=== PATIENT | female | born 1985 | race Caucasian/White ===

== ENCOUNTER → 2018-08-11 12:31 | Outpatient (CLI) | payer SELFPAY ==
[2018-07-14 08:06] VITALS: BMI 33.0
[2018-07-25 09:41] VITALS: BMI 33.0
--- NOTE | 2018-08-11 12:36 | US_ITS ---
STUDY: SECOND AND THIRD TRIMESTER OBSTETRICAL ULTRASOUND REASON FOR EXAM: Female, 33 years old. , assessment LMP: February 09, 2018 TECHNIQUE: Transabdominal imaging of the pelvis was performed using real-time ultrasound. PRIOR ULTRASOUND: None. FINDINGS: There is a single intrauterine fetus. The fetus is in a variable presentation. There is demonstrated cardiac activity with a heart rate of 156 bpm. There is a normal amniotic fluid volume. The largest amniotic fluid pocket measures 4.5 cm. The amniotic fluid index (ROBERT) is 14.4 cm. The placenta is posterior in location and is not low lying. There are Grade 0 placental changes. The cervix measures 4.6 cm in length. The bilateral adnexal regions show no significant abnormalities. The low anterior uterine wall is thin on the left side. BIOMETRY: BPD: 6.76 cm: 27 weeks, 2 days HC: 25.26 cm: 27 weeks, 4 days AC: 21.46 cm: 26 weeks, 0 days FL: 4.86 cm: 26 weeks, 3 days CI: 78% FL/BPD: 72% FL/HC: FL/AC: 23% HC/AC: 1.18 age by current US: 26 weeks, 6 days. LINDA by current US: November 11, 2018. Estimated weight: 918 grams, +/- 134 grams, 45 %. age by prior US: weeks, days. LINDA by prior US: . Age by LMP: 26 weeks, 1 days. LINDA by LMP: November 16, 2018. ANATOMY: Gender: Male Cranium: Normal lateral ventricles. Normal choroid plexus. Normal cerebellum. Normal cisterna magna. Normal face, nose and lips. Chest: Normal 4-chamber heart. Abdomen/Pelvis: Normal diaphragm. Normal stomach. Normal abdominal wall. Normal cord insertion. Normal 3 vessel cord. Normal kidneys. Normal bladder. Spine: Normal cervical spine. Normal thoracic spine. Normal lumbar spine. Extremities: Normal bilateral upper extremities. Normal bilateral lower extremities. US/OB Anatomy Scan IMPRESSION: There is a viable intrauterine with estimated gestational age of 26 weeks 6 days by the current ultrasound. Measurements are given above. No significant anatomic abnormalities are seen. The low anterior uterine wall is thin, left greater than right. This is likely related to prior section with scarring. Electronically Signed: Ankita Montiel MD at 15:32 EST Tel Direct: [phone], Service support ,
== END ==
PROVIDERS: Referring Provider Obstetrics & Gynecology; Visit Provider Obstetrics & Gynecology
DX: Z36.89 Encounter for other specified antenatal screening (principal)
CPT/HCPCS: 76805

== ENCOUNTER → 2018-09-04 12:36 | Outpatient (CLI) | payer SELFPAY ==
[2018-09-04 12:02] VITALS: BMI 33.0
[2018-09-04 13:26] LABS: Absolute Lymphocyte Count 1.69 X10^3/ul (0.83-4.51); Absolute Neutrophil Count 6.3 X10^3/uL (2.0-7.7); Basophil# 0.02 X10^3/uL; Basophil% 0.2 % (0-1); Eosinophil# 0.35 X10^3/uL; Eosinophils% 3.9 % (0-5); Hematocrit 33.7 % (37-47); Hemoglobin 11.4 g/dl (12.0-15.0); Lymphocyte # 1.69 X10^3/ul (4.0); Lymphocyte % 18.7 % (19-41); Mean Corp Hgb Conc 33.8 g/gl (32-36); Mean Corpuscular Hgb 30.8 pg (27.0-32.0); Mean Corpuscular Volume 91.1 fL (81-99); Mean Platelet Vol. 10.2 fl (6.2-12.0); Monocyte# 0.66 X10^3/uL; Monocyte% 7.3 % (0-10); Neutrophil # 6.28 X10^3/uL (2.7-7.7); Neutrophil % 69.6 % (47-70); Platelet Count 192 K/mm3 (150-450); RBC Distribution Width CV 14.1 % (11.6-14.6); RBC Distribution Width SD 45.9 fl (35.1-43.9)
[2018-09-04 13:27] LABS: POSITIVE COUNT NO; POSITIVE DIFFERENTIAL NO; POSITIVE MORPHOLOGY NO
[2018-09-04 13:29] LABS: Glucose Challenge Gest 1H 50g 170 mg/dL (70-140)
--- OUTSIDE RECORDS SUMMARY | 2018-11-06 23:31 | XMS RPT_ITS ---
:1985 Author Organization OHIP Care Team Providers Name Role Phone Deena Reese Attending Unavailable Deena Reese Referring Unavailable Primay Care Physicia, No Primary Care Unavailable Deena Reese Attending Unavailable Primay Care Physicia, No Referring Unavailable SonanthDeena cortez Attending Unavailable Primay Care Physicia, No Referring Unavailable Deena Reese Attending Unavailable Primay Care Physicia, No Referring Unavailable SonanthDeena cortez Attending Unavailable Primay Care Physicia, No Primary Care Unavailable PROBLEMS PROBLEMS DATE TYPE CONDITION / CODE ATTENDING STATUS SOURCE 09/04/2018 Unknown Z34.90 - Hugh, Active [place] Encounter for [facility] normal , Repository unspecified, unspecified trimester / Z34.90(ICD-10) 08/11/2018 Unknown O34.219 - Hugh, Active [place] Maternal care for [facility] unspecified type Hospital scar from Repository previous delivery / O34.219(ICD-10) 08/11/2018 Unknown Z3A.26 - 26 weeks Hugh, Active [place] gestation of 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 [place] [address] OFFICE VISIT Date of Service: 09/04/18 MR#: [id number] Acct: [id number] Name: CORA CEBALLOS Rep #: [id number] : 1985 Provider: Deena Reese MD Age/Sex: 33/F Location: [facility] Status: Signed Intake Vital Signs09/04/18 Body Mass Index (BMI) 33.0 Intake Visit Reasons: 14 WK OB *r/s from 09/12 as pt going out of state Chief Complaint: est ob Capsule Maker Required: No Is patient in pain?: No Allergies No Known Allergies Allergy (Verified 09/04/18 12:01) Medications Vits [Prenatabs FA] 1 tab PO DAILY 06/09/16 [History Confirmed 09/04/18] Last Menstral Period: 02/09/18 Zika: Zika virus screening: Negative : No PFSH PFSH Medical History History of thyroid disease (Acute) Surgical History History of delivery (Acute) Family History Unknown Cancer Social History Smoking Status: Never smoker alcohol intake: never substance use type: does not use caffeine: Yes what type of physical activity do you participate in: walking seatbelt use: always do you feel safe at home: Yes additional social history: Jolly Shannon Patient works out of the home Pregancy History 3 Elective abortions Hx Para 1 Spontaneous abortions Past Pregnancies Del. DatName GA/WeeksOutcome Route Bt [facility] LocaProviderFOB e ht en tn Unknown 2016 [place] live birC-sectio Female [facility] Jaime l term ell HPI 14 WK OB *r/s from 09/12 as pt going [place] of state: Details: CORA CEBALLOS is a 33 year old who presents for routine OB visit. OB Visit LINDA Calculator Estimated Delivery Date 11/16/18 Based on LMP (certain) 02/09/18 Current WG 29w 4d Number 1 Expected Delivery Route/Plan desired- risks discussed and uptodate education given. 63 % likelihood of success. plan cocare with Jeannette wiley lay midwfie and harjinder. recommend repeat US measuring the lower uterine segment due to previous thinning seen on one ultrasound. Initial Weight: Not Recorded Date Weight BP Urine PrFHR FuHt Pres MoCTX DilationFetal StVisit NoProviderComments E ot v te GA G Effac lucose ed Visit Notes Visit Date: 09/04/18 no vb lof good fm no regular ctx. co back pain and discussed wanting ultrasound to evaluate the lower uterine segment. she is getting cbc gct and all the bloodwork today Deena Reese MD on 09/04/18 Visit Date: 08/11/18 No visit notes to display Visit Date: 07/14/18 extensive counseling regarding the risks and benefits of . will approve . no vb cramping. Deena Reese MD on 07/14/18 Diagnostics Diagnostics Labs Blood Type A POSITIVE 06/09/16 Antibody Screen NEGATIVE 06/09/16 Hct Pending 09/04/18 Hgb Pending 09/04/18 Obstetrics Ultrasound 08/11/18 Rubella IgG Antibody < 0.2 IU/mL 06/09/16 RPR NONREACTIVE (NONREACTIVE) 06/09/16 Hep Bs Antigen Negative (Negative) 06/09/16 Group B Strep DNA Negative (Negative) 06/09/16 Rhogam given: No 06/12/16 Glucose 1 Hr 50 gm Pending 09/04/18 Details: HIV: Urine Culture: Sequential Screen: NIPT Screen: Assessment AND Plan Problems 1. Previous delivery affecting O34.219 counseled regarding risks and patient desires TOLAC. 63% likelihood of success. 2. 29 weeks gestation of Z3A.29 genetic, carrier, and ntd screening declined. Anatomy Scan at [facility]-uterine wall thin, recommended repeat US attention to lower uterine segment with MFM in 4-6 weeks. 3. 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 ACOG trimester education reviewed and updated. see problem list details for updated plan management information and see below for orders placed at this visit. GA appropriate handout given. Orders Orders: Coding Level of Care Code OB Routine Diagnoses Previous delivery affecting O34.219 29 weeks gestation of Z3A.29 Weeks of gestation: 29 weeks Encounter for supervision of other normal in third trimester Z34.83 Normal : other normal Trimester: third trimester 09/04/18 1326 <Electronically signed by Deena Reese MD> Date Deena Reese MD Cosigner Signature: Date (if applicable) CC: CBC W/DIFF, AUTOMATED Collected: 09/04/2018 Status: F Source: BRANDY 12:52 PM [facility] REPOSITORY TYPE CODE TESTS RESULT OUT OF RANGE REFERENCE UNITS LAB L100.1000 4.4-11.0 K/mm3 Normal WBC 9.0 LAB L100.1200 4.2-5.4 M/mm3 Low RBC 3.70 LAB L100.1300 12.0-15.0 g/dl Low HGB 11.4 LAB L100.1400 37-47 % Low HCT 33.7 LAB L100.1500 81-99 fL Normal MCV 91.1 LAB L100.1600 27.0-32.0 pg Normal MCH 30.8 LAB L100.1700 32-36 g/gl Normal MCHC 33.8 LAB L100.1810 11.6-14.6 % Normal RDW CV 14.1 LAB L100.1820 35.1-43.9 fl High RDW SD 45.9 LAB L100.1900 150-450 K/mm3 Normal PLT 192 LAB L100.2000 6.2-12.0 fl Normal MPV 10.2 LAB L100.2100 47-70 % Normal NEUT% 69.6 LAB L100.2200 19-41 % Low LY% 18.7 LAB L100.2300 0-10 % Normal MONO% 7.3 LAB L100.2400 0-5 % Normal EO% 3.9 LAB L100.2500 0-1 % Normal BASO% 0.2 LAB L100.2550 0.0-0.9 % Normal IM GRAN % 0.300 Result Comment: IG% - Immature Granulocytes (promyelocytes, myelocytes and metamyelocytes) > 1% indicates that a LEFT SHIFT is Present. LAB L100.2620 2.0-7.7 X10 3/uL Normal Absolute Neut 6.3 LAB L100.2720 0.83-4.51 X10 3/ul Normal Absolute Lymph 1.69 Performed By: #### L100.0100 #### [facility] [address] [place], [address] GLUCOSE CHALLENGE GEST Collected: 09/04/2018 Status: F Source: RBANDY 1H 50G 12:52 PM [facility] REPOSITORY TYPE CODE TESTS RESULT OUT OF RANGE REFERENCE UNITS LAB L501.0250 70-140 mg/dL High GLU GEST 170 50g 1H Performed By: #### L501.0250 #### [facility] [address] 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 [place] [address] OFFICE VISIT Date of Service: 08/11/18 MR#: [id number] Acct: [id number] Name: CORA CEBALLOS Rep #: [id number] : 1985 Provider: Deena Reese MD Age/Sex: 33/F Location: [facility] Status: Signed Intake Vital Signs08/11/18 Weight: 177 lb 8 oz 08/11/18 Blood Pressure 112/72 Intake Visit Reasons: OB/AND FOLLOW UP ANATOMY SCAN Chief Complaint: Est OB Accompanied by: spouse Is patient in pain?: No Allergies No Known Allergies Allergy (Verified 08/11/18 13:47) Medications Vits [Prenatabs FA] 1 tab PO DAILY 06/09/16 [History Confirmed 08/11/18] Last Menstral Period: 02/09/18 Zika: Zika virus screening: Negative : No PFSH PFSH Medical History History of thyroid disease (Acute) Surgical History History of delivery (Acute) Family History Unknown Cancer Social History Smoking Status: Never smoker alcohol intake: never substance use type: does not use caffeine: Yes what type of physical activity do you participate in: walking seatbelt use: always do you feel safe at home: Yes additional social history: Monae Ortega Patient works out of the home Pregancy History 3 Elective abortions Hx Para 1 Spontaneous abortions Past Pregnancies Del. DatName GA/WeeksOutcome Route [facility] HospitalgInB[facility] LgAnesthesDel LocaProviderFOB e ht en ia tn Unknown 2015 [place] live birC-sectio Female Dr[facility] Jaime l term ell HPI OB/AND FOLLOW UP ANATOMY SCAN: Details: CORA CEBALLOS is a 33 year old who presents for routine OB visit. OB Visit LINDA Calculator Estimated Delivery Date 11/16/18 Based on LMP (certain) 02/09/18 Current WG 26w 1d Number 1 Expected Delivery Route/Plan desired- risks discussed and uptodate education given. 63 % likelihood of success. plan cocare with Jeannette wiley lay midwfie and harjinder. Initial Weight: Not Recorded Date Weight BP Urine PrFHR FuHt Pres MoCTX DilationFetal StVisit NoProviderComments E ot v te GA G Effac lucose ed Visit Notes Visit Date: 08/11/18 No visit notes to display Visit Date: 07/14/18 extensive counseling regarding the risks and benefits of . will approve . no vb cramping. Deena Reese MD on 07/14/18 Diagnostics Diagnostics Labs Blood Type A POSITIVE 06/09/16 Antibody Screen NEGATIVE 06/09/16 Hct 28.7 % (37-47) L 06/10/16 Hgb 9.5 g/dl (12.0-15.0) L 06/10/16 Obstetrics Ultrasound 08/11/18 Rubella IgG Antibody < 0.2 IU/mL 06/09/16 RPR NONREACTIVE (NONREACTIVE) 06/09/16 Hep Bs Antigen Negative (Negative) 06/09/16 Group B Strep DNA Negative (Negative) 06/09/16 Rhogam given: No 06/12/16 Details: HIV: Urine Culture: Sequential Screen: NIPT Screen: Assessment AND Plan Problems 1. Previous delivery affecting O34.219 counseled regarding risks and patient desires TOLAC. 63% likelihood of success. 2. 26 weeks gestation of Z3A.26 genetic, carrier, and ntd screening declined. anatomy scan with mfm ordered. 3. Encounter for supervision of other normal in second trimester Z34.82 LINDA 11/16/18 girl PC- Jolly delgado with binder layer Jeannette Maria ACOG trimester education reviewed and updated. see problem list details for updated plan management information and see below for orders placed at this visit. GA appropriate handout given. discussed doing blood work and glucose screening next week. Orders Orders: Coding Level of Care Code OB Routine Diagnoses Previous delivery affecting O34.219 26 weeks gestation of Z3A.26 Weeks of gestation: 26 weeks Encounter for supervision of other normal in second trimester Z34.82 Normal : other normal Trimester: second trimester 08/11/18 1408 <Electronically signed by Deena Reese MD> Date Deena Reese MD Cosigner Signature: Date (if applicable) CC: OB ANATOMY SCAN Observed: 08/11/2018 Status: F Source: BRANDY 12:36 PM [facility] REPOSITORY [facility] Imaging Services [address] [place] [address] OB Anatomy Scan MR#: [id number] Acct: [id number] Name: CORA CEBALLOS Rep #: [id number] : 1985 F 33 From: Ankita Montiel MD PCP: Care Physician, No Primary Status: REG CLI Study: OB Anatomy Scan Date of Exam: 08/11/18 Exam# [id number] Ordering Dr: Deena Reese MD STUDY: SECOND AND THIRD TRIMESTER OBSTETRICAL ULTRASOUND REASON FOR EXAM: Female, 33 years old. , assessment LMP: February 09, 2018 TECHNIQUE: Transabdominal imaging of the pelvis was performed using real-time ultrasound. PRIOR ULTRASOUND: None. FINDINGS: There is a single intrauterine fetus. The fetus is in a variable presentation. There is demonstrated cardiac activity with a heart rate of 156 bpm. There is a normal amniotic fluid volume. The largest amniotic fluid pocket measures 4.5 cm. The amniotic fluid index (ROBERT) is 14.4 cm. The placenta is posterior in location and is not low lying. There are Grade 0 placental changes. The cervix measures 4.6 cm in length. The bilateral adnexal regions show no significant abnormalities. The low anterior uterine wall is thin on the left side. BIOMETRY: BPD: 6.76 cm: 27 weeks, 2 days HC: 25.26 cm: 27 weeks, 4 days AC: 21.46 cm: 26 weeks, 0 days FL: 4.86 cm: 26 weeks, 3 days CI: 78% FL/BPD: 72% FL/HC: FL/AC: 23% HC/AC: 1.18 age by current US: 26 weeks, 6 days. LINDA by current US: November 11, 2018. Estimated weight: 918 grams, +/- 134 grams, 45 %. age by prior US: weeks, days. LINDA by prior US: . Age by LMP: 26 weeks, 1 days. LINDA by LMP: November 16, 2018. ANATOMY: Gender: Male Cranium: Normal lateral ventricles. Normal choroid plexus. Normal cerebellum. Normal cisterna magna. Normal face, nose and lips. Chest: Normal 4-chamber heart. Abdomen/Pelvis: Normal diaphragm. Normal stomach. Normal abdominal wall. Normal cord insertion. Normal 3 vessel cord. Normal kidneys. Normal bladder. Spine: Normal cervical spine. Normal thoracic spine. Normal lumbar spine. Extremities: Normal bilateral upper extremities. Normal bilateral lower extremities. US/OB Anatomy Scan IMPRESSION: There is a viable intrauterine with estimated gestational age of 26 weeks 6 days by the current ultrasound. Measurements are given above. No significant anatomic abnormalities are seen. The low anterior uterine wall is thin, left greater than right. This is likely related to prior section with scarring. 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 Is patient in pain?: No Allergies No Known Allergies Allergy (Verified 07/14/18 08:06) Medications Vits [Prenatabs FA] 1 tab PO DAILY 06/09/16 [History Confirmed 07/14/18] Last Menstral Period: 02/09/18 Zika: Zika virus screening: Negative : No PFSH PFSH Medical History History of thyroid disease (Acute) Surgical History History of delivery (Acute) Family History Unknown Cancer Social History Smoking Status: Never smoker alcohol intake: never substance use type: does not use caffeine: Yes what type of physical activity do you participate in: walking seatbelt use: always do you feel safe at home: Yes additional social history: Monae Ortega Patient works out of the home Pregancy History 3 Elective abortions Hx Para 1 Spontaneous abortions Past Pregnancies Del. DatName GA/WeeksOutcome Route Bt WeigInfant GLabor LgAnesthesDel LocaProviderFOB e ht en th ia tn Unknown 2016 [place] live birC-sectio Female Dr[facility] Jaime l term ell HPI consult 20 weeks: Details: CORA CEBALLOS is a 33 year old who presents for routine OB visit. she is considering transfer of care. she is about 20 weeks with her second . she had a previous for 9 cm arrest of dilation and possible cpd versus arrest of . she is wanting to OB Visit LINDA Calculator Estimated Delivery Date 11/16/18 Based on LMP (certain) 02/09/18 Current WG 22w 1d Number 1 Expected Delivery Route/Plan desired- risks discussed and uptodate education given. 63 % likelihood of success. plan cocare with Jeannette wiley lay midwfie and harjinder. Initial Weight: Not Recorded Date Weight BP Urine PrFHR FuHt Pres MoCTX DilationFetal StVisit NoProviderComments E ot v te GA G Effac lucose ed Visit Notes Visit Date: 07/14/18 extensive counseling regarding the risks and benefits of . will approve . no vb cramping. Deena Reese MD on 07/14/18 Diagnostics Diagnostics Labs Blood Type A POSITIVE 06/09/16 Antibody Screen NEGATIVE 06/09/16 Hct 28.7 % (37-47) L 06/10/16 Hgb 9.5 g/dl (12.0-15.0) L 06/10/16 Rubella IgG Antibody < 0.2 IU/mL 06/09/16 RPR NONREACTIVE (NONREACTIVE) 06/09/16 Hep Bs Antigen Negative (Negative) 06/09/16 Group B Strep DNA Negative (Negative) 06/09/16 Rhogam given: No 06/12/16 Details: HIV: Urine Culture: Sequential Screen: NIPT Screen: ROS Const Denies fever(s) GI Denies abdominal pain, Reports as per HPI Denies vaginal discharge, Denies abnormal vaginal bleeding, Reports as per HPI Exam Const General: healthy appearing, comfortable, no acute distress GI Inspection: normal to inspection Palpation: soft, nontender Results [id number] Office Urine Glucose Negative Last Edit by Heydi Potter on 07/14/18 08:18 Office Urine Protein Negative Last Edit by Heydi Potter on 07/14/18 08:18 Assessment AND Plan Problems 1. Encounter for supervision of other normal in second trimester Z34.82 LINDA 11/16/18 girl PC- Jolly delgado with binder layer Jeannette 2. 20 weeks gestation of Z3A.20 genetic, carrier, and ntd screening declined. anatomy scan with mfm ordered. 3. Previous delivery affecting O34.219 counseled regarding risks and patient desires TOLAC. 63% likelihood of success. Plan ACOG trimester education reviewed and updated. see problem list details for updated plan management information and see below for orders placed at this visit. GA appropriate handout given. Orders Orders: Coding Level of Care Code OB Routine Diagnoses Encounter for supervision of other normal in second trimester Z34.82 Normal : other normal Trimester: second trimester 20 weeks gestation of Z3A.20 Weeks of gestation: 20 weeks Previous delivery affecting O34.219 07/14/18 1121 <Electronically signed by Deena Reese MD> Date Deena Reese MD Cosigner Signature: Date (if applicable) CC: ALLERGIES ALLERGIES DATE TYPE / CODE NAME / CODE REACTION SEVERITY SOURCE 09/04/2018 Drug No Known Unknown [facility] Allergy/4160 Allergies/F00 Hospital 02350(SNOMED [id number](RXNOR Repository CT) M) ENCOUNTERS ENCOUNTERS ADMIT/DISCHARGE ACCOUNT ADMITTING ENCOUNTER LOCATION SOURCE NUMBER CLASS 09/04/2018 [id number] Amb[place] [facility] ing:PAVLAB Repository 09/04/2018/ [id number] Ambulatory BMSBuilding:B [place] [facility] 5 [facility] Repository 08/11/2018/ [id number] Ambulatory BMSBuilding:B [place] [facility] 3 [facility] Repository 08/11/2018 [id number] Ambulatory [place] [address] [place] [address] ing:OPUS Repository 07/14/2018/ [id number] Ambulatory BMSBuilding:B [place] 8 6 [facility] Repository PAYERS PAYERS ENCOUNTER GUARANTOR PAYER SUBSCRIBER SOURCE 09/04/2018 CORA [id number] Primary NOT GIVENUNK [place] [employer] Insurance:SELF PAY [facility] [id number]: ([phone]) Number: Effective Repository [phone] () Date:2018-09-04 09/04/2018 CORA Perry [id number] Primary NOT GIVENUNK [place] [employer] [place] Insurance:SELF PAY [facility] [id number]: (780) Number: Effective Repository [phone] () Date:2018-09-04 08/11/2018 CORA Perry [id number] Primary NOT GIVENUNK [place] [employer] Insurance:SELF PAY [facility] [id number]: [phone]) Number: Effective Repository [phone] () Date:2018-08-11 08/11/2018 CORA Perry [id number] Primary Insurance:[facility] CORA Perry MASTDOB: [place] [employer] PACKAGE PLAN[id number] Number[place] Hospital [id number]: [phone] Repository [phone] () Date:2018-07-25 08/11/2018 Secondary NOT GIVENUNK [place] Insurance:SELF PAY [facility] [place] Number: Effective Repository Date:2018-07-25 07/14/2018 CORA Perry [id number] Primary Insurance:[facility] CORA Perry NATEB: [place] [employer] PACKAGE PLANPolicy [id number] Number: [facility] [id number]: [phone] Repository [phone] () Date:2018-06-14 07/14/2018 Secondary NOT GIVENUNK [place] Insurance:SELF PAY [facility] [place] Number: Effective Repository Date:2018-07-14
== END ==
PROVIDERS: Visit Provider Obstetrics & Gynecology
DX: Z34.90 Encounter for supervision of normal pregnancy, unspecified, unspecified trimester (principal)
CPT/HCPCS: 36415; 82950; 85025

== ENCOUNTER → 2018-10-24 16:52 | Outpatient (CLI) | payer OTHER, SELFPAY ==
[2018-10-24 08:17] VITALS: BMI 33.0
== END ==
PROVIDERS: Referring Provider Obstetrics & Gynecology; Visit Provider Obstetrics & Gynecology
DX: Z34.90 Encounter for supervision of normal pregnancy, unspecified, unspecified trimester (principal)
CPT/HCPCS: 87081

== ENCOUNTER → 2018-11-20 | Outpatient (CLI) | payer SELFPAY ==
[2018-11-13 08:39] VITALS: BMI 35.2
--- NOTE | 2018-11-20 11:17 | US_ITS ---
STUDY: SECOND AND THIRD TRIMESTER OBSTETRICAL ULTRASOUND - LIMITED REASON FOR EXAM: Female, 33 years old. Routine survey. LMP: February 09, 2018 PRIOR ULTRASOUND: Comparison is made with prior study dated August 11, 2018. TECHNIQUE: Transabdominal TECHNICAL QUALITY: Adequate. FINDINGS: There is a single intrauterine fetus. The fetus is in a cephalic presentation. There is demonstrated cardiac activity with a heart rate of 128 bpm. There is a normal amniotic fluid volume. The largest amniotic fluid pocket measures 3.1 cm x 2.7 cm. The amniotic fluid index (ROBERT) is 13.0 cm. The placenta is posterior in location and is not low lying. There are Grade 3 placental changes. The lower uterine segment is not visualized due to the position. BIOMETRY: BPD: 9.7 cm: 39 weeks, 5 days HC: 34.6 cm: 40 weeks, 1 days AC: 36.5 cm: 40 weeks, 3 days FL: 7.9 cm: 40 weeks, 1 days Age by LMP: 40 weeks, 4 days. LINDA by LMP: November 16, 2018. age by prior US: 41 weeks, 3 days. LINDA by prior US: November 11, 2018. age by current US: 40 weeks, 1 days. LINDA by current US: November 19, 2018. Estimated weight: 4021 grams, +/- 587 grams Gender: Indeterminant US/OB Limited With Biometrics IMPRESSION: Single live intrauterine gestation with a mean gestational age of 41 weeks and 3 days. The measurements obtained today fall within the normal expected range. Electronically Signed: Hank Quinonez, at 13:21 EDT , Service support ,
== END | disposition home or self-care (01) ==
PROVIDERS: Referring Provider Obstetrics & Gynecology; Visit Provider Obstetrics & Gynecology
DX: O48.0 Post-term pregnancy (principal); Z3A.00 Weeks of gestation of pregnancy not specified
CPT/HCPCS: 76816

== ENCOUNTER 2018-11-24 09:45 | Inpatient (IN) | payer SELFPAY ==
[2018-11-20 12:44] VITALS: BMI 35.2
[2018-11-24] VITALS (19 sets, daily range): BP systolic 90–113; BP diastolic 43–72; PULSE 52–94; RESP 14–18; TEMP 36.1–36.8; O2SAT 96–100; BMI 35.3
[2018-11-24] MEDS: Lactated Ringers 1,000 ML 999 ML IV (10:05)
[2018-11-24 10:56] LABS: Hemoglobin 12.3 g/dl (12.0-15.0); Mean Corp Hgb Conc 33.2 g/gl (32-36); Mean Corpuscular Hgb 29.3 pg (27.0-32.0); Mean Corpuscular Volume 88.1 fL (81-99); Mean Platelet Vol. 10.8 fl (6.2-12.0); Platelet Count 191 K/mm3 (150-450); RBC Distribution Width CV 14.5 % (11.6-14.6); RBC Distribution Width SD 46.9 fl (35.1-43.9); White Blood Count 8.4 K/mm3 (4.4-11.0)
[2018-11-24 10:57] LABS: Scan Indicated on CBC? Y/N NO
[2018-11-24] MEDS: Lactated Ringers 1,000 ML 150 ML IV (11:02)
[2018-11-24 11:20] LABS: Bedside Glucose 82 mg/dL (70-110)
--- NOTE | 2018-11-24 11:47 | PCM.HP.OB ---
- Problem List (1) Gestational diabetes Status: Acute Qualifiers: Comment: counseling provided about glucose management. if fasting sugars are still over 95 recommend starting 2.5mg glyburide at night. needs growth US next week and if starting medication needs weekly nsts until delivery at 39-40 weeks (2) Rubella non-immune status, antepartum Status: Acute Comment: MMR (3) Previous delivery affecting Status: Acute Comment: counseled regarding risks and patient desires TOLAC. 63% likelihood of success. (4) Status: Acute Qualifiers: Comment: genetic, carrier, and ntd screening declined. Anatomy Scan at [facility]-uterine wall thin, recommended repeat US attention to lower uterine segment with MFM in 4-6 weeks. 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 she denies any abnormal bleeding. she was desiring a but didn't go into labor and her cervix isn't favorable. Medical History: Medical History (Last Reviewed 11/20/18 @ 12:44 by Zakia Roche) History of thyroid disease Z86.39 no medication, taking natural supplement Surgical History: Surgical History (Last Reviewed 11/20/18 @ 12:44 by Zakia Roche) History of delivery Z98.891 Allergies No Known Allergies Allergy (Verified 11/20/18 12:44) Home Medications: Home Medications Vits [Prenatabs FA] 1 tab PO DAILY 06/09/16 blood sugar diagnostic strips See Dose Instructions .ROUTE .MEDSUPPLY #100 ea 11/13/18 Smoking Status: Never smoker Alcohol: None Number of Fetus(es): 1 Heart Tracin History Past Pregnancies: Past Pregnancies preivuos cs for breech Labs: Mom's Labs & Results 11/24/18 11/24/18 11/24/18 10:05 10:05 11:10 WBC 8.4 RBC 4.20 Hgb 12.3 Hct 37.0 MCV 88.1 MCH 29.3 MCHC 33.2 RDW 14.5 RDW Differential 46.9 H Plt Count 191 MPV 10.8 POC Glucose 82 Blood Type A POSITIVE Antibody Screen NEGATIVE Course Did the patient receive Yes care? Labs Blood Type: A RH: POSITIVE RPR/VDRL/Syphilis Nonreactive Rubella status Non-immune HbSAg Negative Chlamydia Negative Gonorrhea Negative HIV/AIDS Non-Reactive Group B Strep: Negative Current Obstetrical History Gestational Diabetes Yes: diet controlled Infertility No IUGR No Macrosomia No Hypertension/Pre-eclampsia No Placenta Previa/Abruption No PTL/PROM No Uterine anomaly No Oligohydramnios No Polyhydramnios No Multiple gestation No Past Medical History Asthma No Diabetes No Hypertension No Heart disease No Mitral valve prolapse No Neurologic/Seizure disorder/ No Migraines Kidney disease No Liver disease No Varicosities No Clotting disorders/Hx of DVT No Thyroid Dysfunction No Other medical diseases No Psychiatric disorders No Major trauma No Abnormal PAP smear No Sleep apnea No Mammogram in the last 2 years No Social History Marital Status: Alleged father cristian Hx Smoking No Smoking Status Never smoker Expected Infant Delivery Method: Repeat Section Review of Systems Constitutional: Denies: Fever, Malaise Eyes: Denies: Blurred vision, Vision Change HEENT: Denies: Head Aches, Visual Changes Cardiovascular: Denies: Chest Pain, Palpitations Respiratory: Denies: Cough, Shortness of Breath, Wheezing Gastrointestinal: Denies: Abdominal Pain, Diarrhea, Nausea, Vomiting Genitourinary: Denies: Dysuria, Hematuria Musculoskeletal: Denies: Joint Pain, Muscle pain Skin: Denies: Lesions, Rash Neurological: Denies: Blurred vision, Focal weakness, Headaches Psychiatric: Denies: Anxiety, Depression Endocrine: Denies: Heat/ Cold Intolerance Hematologic/ Lymphatic: Denies: Easy Bruising, Easy Bleeding Physical Exam General: Alert, Cooperative, No apparent distress HEENT: Atraumatic, Normocephalic. Negative for: Thyromegaly, Lymphadenopathy Cardiovascular: Regular rate Lungs: Normal air movement Abdomen: Soft, Non Tender, Gravid Neurological: Deep Tendon Reflexes 2+/4 and Symmetrical, Neuro grossly intact. 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 Negative for: Vulvar lesions Estimated gestational size: Appropriate for gestational size Presentation: Cephalic Assessment/Plan All Active Problems (Last Reviewed 11/20/18 @ 12:44 by Zakia Roche) Gestational diabetes (Acute) Rubella non-immune status, antepartum (Acute) Previous delivery affecting (Acute) (Acute) Supervision of normal (Acute) This is a 33 year-old, at 41 weeks gestational age presents for RLTCS plan RLTCS due to unfavorable cervix, diabetes, and 41 weeks.
--- NOTE | 2018-11-24 11:50 | HP.PCM_ITS ---
- Problem List (1) Gestational diabetes Status: Acute Qualifiers: Comment: counseling provided about glucose management. if fasting sugars are still over 95 recommend starting 2.5mg glyburide at night. needs growth US next week and if starting medication needs weekly nsts until delivery at 39-40 weeks (2) Rubella non-immune status, antepartum Status: Acute Comment: MMR (3) Previous delivery affecting Status: Acute Comment: counseled regarding risks and patient desires TOLAC. 63% likelihood of success. (4) Status: Acute Qualifiers: Comment: genetic, carrier, and ntd screening declined. Anatomy Scan at [facility]- uterine wall thin, recommended repeat US attention to lower uterine segment with MFM in 4-6 weeks. 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 she denies any abnormal bleeding. she was desiring a but didn't go into labor and her cervix isn't favorable. Medical History: Medical History (Last Reviewed 11/20/18 @ 12:44 by Zakia Roche) History of thyroid disease Z86.39 no medication, taking natural supplement Surgical History: Surgical History (Last Reviewed 11/20/18 @ 12:44 by Zakia Roche) History of delivery Z98.891 Allergies No Known Allergies Allergy (Verified 11/20/18 12:44) Home Medications: Home Medications Vits [Prenatabs FA] 1 tab PO DAILY 06/09/16 blood sugar diagnostic strips See Dose Instructions .ROUTE .MEDSUPPLY #100 ea 11/13/18 Smoking Status: Never smoker Alcohol: None Number of Fetus(es): 1 Heart Tracin History Past Pregnancies: Past Pregnancies preivuos cs for breech Labs: Mom's Labs & Results 11/24/18 11/24/18 11/24/18 10:05 10:05 11:10 WBC 8.4 RBC 4.20 Hgb 12.3 Hct 37.0 MCV 88.1 MCH 29.3 MCHC 33.2 RDW 14.5 RDW Differential 46.9 H Plt Count 191 MPV 10.8 POC Glucose 82 Blood Type A POSITIVE Antibody Screen NEGATIVE Course Did the patient receive Yes care? Labs Blood Type: A RH: POSITIVE RPR/VDRL/Syphilis Nonreactive Rubella status Non-immune HbSAg Negative Chlamydia Negative Gonorrhea Negative HIV/AIDS Non-Reactive Group B Strep: Negative Current Obstetrical History Gestational Diabetes Yes: diet controlled Infertility No IUGR No Macrosomia No Hypertension/Pre-eclampsia No Placenta Previa/Abruption No PTL/PROM No Uterine anomaly No Oligohydramnios No Polyhydramnios No Multiple gestation No Past Medical History Asthma No Diabetes No Hypertension No Heart disease No Mitral valve prolapse No Neurologic/Seizure disorder/ No Migraines Kidney disease No Liver disease No Varicosities No Clotting disorders/Hx of DVT No Thyroid Dysfunction No Other medical diseases No Psychiatric disorders No Major trauma No Abnormal PAP smear No Sleep apnea No Mammogram in the last 2 years No Social History Marital Status: Alleged father cristian Hx Smoking No Smoking Status Never smoker Expected Infant Delivery Method: Repeat Section Review of Systems Constitutional: Denies: Fever, Malaise Eyes: Denies: Blurred vision, Vision Change HEENT: Denies: Head Aches, Visual Changes Cardiovascular: Denies: Chest Pain, Palpitations Respiratory: Denies: Cough, Shortness of Breath, Wheezing Gastrointestinal: Denies: Abdominal Pain, Diarrhea, Nausea, Vomiting Genitourinary: Denies: Dysuria, Hematuria Musculoskeletal: Denies: Joint Pain, Muscle pain Skin: Denies: Lesions, Rash Neurological: Denies: Blurred vision, Focal weakness, Headaches Psychiatric: Denies: Anxiety, Depression Endocrine: Denies: Heat/ Cold Intolerance Hematologic/ Lymphatic: Denies: Easy Bruising, Easy Bleeding Physical Exam General: Alert, Cooperative, No apparent distress HEENT: Atraumatic, Normocephalic. Negative for: Thyromegaly, Lymphadenopathy Cardiovascular: Regular rate Lungs: Normal air movement Abdomen: Soft, Non Tender, Gravid Neurological: Deep Tendon Reflexes 2+/4 and Symmetrical, Neuro grossly intact. 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 Negative for: Vulvar lesions Estimated gestational size: Appropriate for gestational size Presentation: Cephalic Assessment/Plan All Active Problems (Last Reviewed 11/20/18 @ 12:44 by Zakia Roche) Gestational diabetes (Acute) Rubella non-immune status, antepartum (Acute) Previous delivery affecting (Acute) (Acute) Supervision of normal (Acute) This is a 33 year-old, at 41 weeks gestational age presents for RLTCS plan RLTCS due to unfavorable cervix, diabetes, and 41 weeks.
[2018-11-24] MEDS: Sodium Citrate/Citric Acid 30 ML UDC PO (11:55)
--- NOTE | 2018-11-24 12:24 | OP.PCM_ITS ---
Problem List (1) Gestational diabetes Status: Acute Qualifiers: Comment: counseling provided about glucose management. if fasting sugars are still over 95 recommend starting 2.5mg glyburide at night. needs growth US next week and if starting medication needs weekly nsts until delivery at 39-40 weeks (2) Rubella non-immune status, antepartum Status: Acute Comment: MMR (3) Previous delivery affecting Status: Acute Comment: counseled regarding risks and patient desires TOLAC. 63% likelihood of success. (4) Status: Acute Qualifiers: Comment: genetic, carrier, and ntd screening declined. [facility] Scan at [facility]- uterine wall thin, recommended repeat US attention to lower uterine segment with MFM in 4-6 weeks. 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 Spinal anesthesia was placed without difficulty. Walden catheter was placed. The patient was placed in the dorsal supine position with leftward tilt. Patient was prepped and draped in the normal sterile fashion. Pfannenstiel skin incision was made with the scalpel and carried through to the underlying layer of fascia with the scalpel. Fascia was nicked in the midline and the incision extended laterally. The rectus bellies were dissected off superiorly and inferiorly with out complication both sharply and bluntly. The peritoneum was entered digitally. Upon examination there was a thinner than normal appearance to the lower uterine segment but the integrity appeared intact and within normal limits. There was some scar and retraction on the left side of the uterine incision but no gross defects were seen. Bladder flap was created and a low transverse uterine incision was made with the scalpel. The infant's head was delivered atraumatically followed by the anterior and posterior shoulders without complication the rest of the delivered. The cord was clamped and cut and the infant was handed off to awaiting nurse. The placenta was delivered spontaneously immediately following and was noted to be intact and have a three- vessel cord. The uterus was exteriorized cleared of all clots and debris, and the incision was closed in a double layer closure using #1 Monocryl. The uterus was returned to the maternal abdomen and gutters were cleared of all clots and debris. The ovaries and fallopian tubes were noted to be within normal limits. The peritoneum was closed with 3-0 Monocryl in a running fashion. Fascia was closed with 0 PDS in a running fashion. Subcutaneous tissue was copiously irrigated and the skin was closed with 3-0 Monocryl in a subcuticular fashion. Mepilex dressing were applied without complication. Patient was taken to recovery in stable condition. Amniotic Fluid Description: Clear Placenta Disposition: [facility] Drain: Walden to straight drain Fluids Replaced: crystalloid Cord Entanglement: None Cord Vessel Description: 3 Vessels Esitmated Blood Loss (ml): 800 Gender: Male Delayed cord clamping: Yes Pre-op Antibiotic Given: Ancef 2 grams IV x1 Pt instructed on risks of surgery: Bleeding, Anesthesia Risks, Infection, Injury to surrounding structure(s) including bowel and bladder Complications: None - Admit VTE Documentation VTE Present on Admission: No VTE Mechan Device Prophylaxis: SCD's
[2018-11-24] MEDS: Oxytocin 30 units/NS 500 ml 30 UNITS/500 ML IV.SOLN 167 UNITS IV (12:44)
--- NOTE | 2018-11-24 13:59 | NURSING ---
pt has red raised rash on abdomen states having during and Dr manjarrez.
[2018-11-24] MEDS: Metoclopramide 10 MG/2 ML Vial IV (14:46)
[2018-11-24] MEDS: Lactated Ringers 1,000 ML 100 ML IV ×2 (15:05→19:58)
[2018-11-24] MEDS: proCHLORPERazine 10 MG/2 ML Vial IV (15:51)
[2018-11-24] MEDS: Ketorolac 30 MG/ML Syringe IV (19:58)
[2018-11-25] VITALS (10 sets, daily range): BP systolic 84–95; BP diastolic 40–51; PULSE 67–78; RESP 16–18; TEMP 36.6–36.9; O2SAT 93–98
[2018-11-25] MEDS: Lactated Ringers 1,000 ML 100 ML IV (06:27)
[2018-11-25] MEDS: Ketorolac 30 MG/ML Syringe IV ×2 (06:31→12:17)
[2018-11-25] MEDS: 0.9% Saline Lock 10 ML Syringe IV ×2 (06:31→12:18)
[2018-11-25 06:55] LABS: Bedside Glucose 87 mg/dL (70-110)
[2018-11-25 06:55] LABS: Hematocrit 31.6 % (37-47); Hemoglobin 10.4 g/dl (12.0-15.0); Mean Corp Hgb Conc 32.9 g/gl (32-36); Mean Corpuscular Hgb 29.1 pg (27.0-32.0); Mean Corpuscular Volume 88.5 fL (81-99); Mean Platelet Vol. 10.8 fl (6.2-12.0); Platelet Count 163 K/mm3 (150-450); RBC Distribution Width CV 14.4 % (11.6-14.6); RBC Distribution Width SD 45.4 fl (35.1-43.9); Red Blood Count 3.57 M/mm3 (4.2-5.4); White Blood Count 10.2 K/mm3 (4.4-11.0)
[2018-11-25 06:57] LABS: Scan Indicated on CBC? Y/N NO
--- NOTE | 2018-11-25 08:51 | PCM.PN.OB ---
Subjective: doing well no complaints pain controlled no CP SOB N V ambulating well tolerating po lochia moderate, going well - Physical Exam General: Alert, Oriented x3 Vital Signs Temp Pulse Resp BP Pulse Ox 98.3 F 67 18 93/46 L 97 11/25/18 04:45 11/25/18 08:00 11/25/18 08:00 11/25/18 04:45 11/25/18 08:00 Oxygen Delivery Method Room Air Weight: 186 lb 12.8 oz Body Mass Index (BMI) 35.3 Intake and Output for Last 24 Hours 11/23/18 11/24/18 11/25/18 23:59 23:59 23:59 Intake Total 2537 / 2537 1463 / 1463 Output Total 1200 / 1200 625 / 625 Balance 1337 / 1337 838 / 838 Laboratory Tests Past 24 Hrs 11/24/18 11/24/18 11/25/18 10:05 10:05 06:40 WBC 8.4 10.2 RBC 4.20 3.57 L Hgb 12.3 10.4 L Hct 37.0 31.6 L MCV 88.1 88.5 MCH 29.3 29.1 MCHC 33.2 32.9 RDW 14.5 14.4 RDW Differential 46.9 H 45.4 H Plt Count 191 163 MPV 10.8 10.8 Blood Type A POSITIVE Antibody Screen NEGATIVE POC Glucose 11/25/18 11/24/18 06:29 11:10 POC Glucose 87 82 Medical Necessity - Tobacco Use Smoking Status: Never smoker Assessment/Plan All Active Problems (Last Reviewed 11/20/18 @ 12:44 by Zakia Roche) Gestational diabetes (Acute) Rubella non-immune status, antepartum (Acute) Previous delivery affecting (Acute) (Acute) Supervision of normal (Acute) s/p LTCS PPD # 1 1. routine post care 2. breast feeding- support given 3. rh positive 4. rubella non immune 5. diabetes
[2018-11-25] MEDS: Naproxen 250 MG Tablet PO (18:27)
[2018-11-25] MEDS: Acetaminophen 500 MG Tablet 1000 MG PO (20:21)
[2018-11-26] MEDS: Naproxen 250 MG Tablet PO (02:34)
[2018-11-26 02:38] VITALS: BP 102/66; PULSE 81; RESP 16; TEMP 36.7; O2SAT 94
[2018-11-26] MEDS: Senna/Docusate Sodium 1 Tablet PO (03:57)
[2018-11-26] MEDS: Acetaminophen 500 MG Tablet 1000 MG PO ×2 (04:38→13:27)
--- NOTE | 2018-11-26 07:35 | PCM.PN.OB ---
Subjective: doing well no complaints pain controlled no CP SOB N V ambulating well tolerating po lochia moderate, going well - Physical Exam General: Alert, Oriented x3 Vital Signs Temp Pulse Resp BP Pulse Ox 98.1 F 81 16 102/66 94 11/26/18 02:38 11/26/18 02:38 11/26/18 02:38 11/26/18 02:38 11/26/18 02:38 Oxygen Delivery Method Room Air Weight: 186 lb 12.8 oz Body Mass Index (BMI) 35.3 Intake and Output for Last 24 Hours 11/24/18 11/25/18 11/26/18 23:59 23:59 23:59 Intake Total 2537 / 2537 3063 / 3063 Output Total 1200 / 1200 2225 / 2225 250 / 250 Balance 1337 / 1337 838 / 838 -250 / -250 Medical Necessity - Tobacco Use Smoking Status: Never smoker Assessment/Plan All Active Problems (Last Reviewed 11/20/18 @ 12:44 by Zakia Roche) Gestational diabetes (Acute) Rubella non-immune status, antepartum (Acute) Previous delivery affecting (Acute) (Acute) Supervision of normal (Acute) s/p LTCS PPD # 2 1. routine post care 2. breast feeding- support given 3. rh positive 4. rubella non immune 5. diabetes
--- NOTE | 2018-11-26 07:37 | DCINST_ITS ---
Discharge Diet: No Restrictions Discharge Activity: May Not Drive - for 2 weeks, May not drive while taking narcotic pain medications., May Shower, May Take a Tub Bath - in 7 days May resume sexual activity in: 4-6 weeks Lifting Restrictions: 20 pounds Additional Activity Instructions:: Nothing in the vagina for 4-6 weeks. You may return to work/school in 6 weeks. Call your doctor if your incision/area has: Continuous Slow Oozing, Sudden Increased Bleeding, Increased Pain/ Swelling, Increased Redness, Foul Smelling Discharge Call your doctor if you observe: Fever of 101 or Higher, Using more than one pad per hour - for 2 hours Suture Line Care: Avoid Pulling/Pushing, Avoid Pinching/Bending Cleanse incision/area with: Keep Dressing Clean & Dry Additional Instructions: If you experience any of the following, contact your healthcare provider. * Bleeding that soaks a pad every hour for 2 hours * Fever 100.4 or higher * Unrelieved incision or abdominal pain * Swelling, redness, discharge or bleeding from your incision or episiotomy site * Your incision begins to separate * Problems urinating (including inability to urinate or burning while urinating). * Visual changes * Severe headache * Flu-like symptoms * Pain or redness in one of both of your breasts * Pain, warmth, tenderness or swelling in your legs, especially the calf area * Frequent nausea and vomiting * Symptoms of depression or anxiety If you experience any of the following, call 911 or go to the nearest Emergency Room. * Chest pain * Problems breathing * Seizure activity * Partial or complete paralysis of a body part, slurred speech, weakness or drooping of the face, or a sudden inability to walk or hold your balance Allergies/Adverse Reactions: Allergies No Known Allergies Allergy (Verified 11/20/18 12:44) Medications to take at Discharge Vits [Prenatabs FA] 1 tab PO DAILY 06/09/16 blood sugar diagnostic strips See Dose Instructions .ROUTE .MEDSUPPLY #100 ea 11/13/18 Naproxen [Naprosyn] 250 - 500 mg PO Q8H PRN PRN #30 tab 11/26/18 Oxycodone HCl/Acetaminophen [Percocet 5-325] 1 - 2 tab PO Q4H PRN PRN 7 Days #15 tab 11/26/18 The following prescriptions were given: Oxycodone HCl/Acetaminophen [Percocet 5-325] 1 - 2 tab PO Q4H PRN PRN 7 Days #15 tab PRN Reason: Pain Naproxen [Naprosyn] 250 - 500 mg PO Q8H PRN PRN #30 tab PRN Reason: MILD PAIN Follow-Up: Call to make an appointment with your doctor for an incision check in 1-2 weeks. You will also need a 6 week post- follow up appointment. Test results from this visit will be discussed in further detail at your follow- up appointment, if applicable. Please Follow Up With: Deena Reese MD - Call to make an appointment for an incision check in 1-2 [phone] When: You will need a post- check in 6 weeks. Primary Care Physician: Care Physician,No Primary [Primary Care Provider] -
[2018-11-26] MEDS: oxyCODONE 5 MG Tablet PO ×2 (07:59→12:17)
[2018-11-26 08:10] VITALS: BP 101/55; PULSE 79; RESP 18; TEMP 36.7; O2SAT 97
[2018-11-26 12:33] VITALS: BP 110/65; PULSE 88; RESP 16; TEMP 37; O2SAT 98
[2018-11-26 12:38] VITALS: BP 105/65; PULSE 70; RESP 18; TEMP 36.8; O2SAT 98
== END 2018-11-26 15:00 | disposition home or self-care (01) | DRG 788 ==
PROVIDERS: Admitting Provider Obstetrics & Gynecology; Referring Provider Obstetrics & Gynecology; Visit Provider Obstetrics & Gynecology
PROC: 10D00Z1 Extraction of Products of Conception, Low, Open Approach (ICD-10-PCS; CPT 59514; principal; 2018-11-24 11:45)
DX: O34.211 Maternal care for low transverse scar from previous cesarean delivery (principal); O48.0 Post-term pregnancy; O24.420 Gestational diabetes mellitus in childbirth, diet controlled; O34.43 Maternal care for other abnormalities of cervix, third trimester; Z78.9 Other specified health status; Z3A.41 41 weeks gestation of pregnancy; Z37.0 Single live birth
CPT/HCPCS: 59025; 59050; 82962; 85027; 86850; 86900; 99218; J7120; A4216; G0378; J2405

== ENCOUNTER → 2018-12-26 13:23 | Outpatient (CLI) | payer OTHER, SELFPAY ==
[2018-12-26 08:41] VITALS: BMI 35.3
[2018-12-29 10:30] LABS: HPV APTIMA, High Risk Negative (Negative)
== END ==
PROVIDERS: Referring Provider Obstetrics & Gynecology; Visit Provider Obstetrics & Gynecology
DX: Z12.4 Encounter for screening for malignant neoplasm of cervix (principal)
CPT/HCPCS: 87624; 88175; G0145

== ENCOUNTER → 2020-04-09 08:54 | Outpatient (CLI) | payer SELFPAY ==
[2018-12-26 08:41] VITALS: BMI 35.3
--- NOTE | 2020-04-09 08:58 | US_ITS ---
STUDY: SECOND AND THIRD TRIMESTER OBSTETRICAL ULTRASOUND REASON FOR EXAM: Female, 34 years old ANATOMY LMP: 11/23/2019 TECHNIQUE: Transvaginal TECHNICAL QUALITY: Adequate. PRIOR ULTRASOUND: None. FINDINGS: There is a single intrauterine fetus. The fetus is in a variable presentation. There is demonstrated cardiac activity with a heart rate of 137 bpm. There is a normal amniotic fluid volume. The largest amniotic fluid pocket measures 8.1 cm x 4.1 cm. The amniotic fluid index (ROBERT) is within normal limits. The placenta is anterior in location and is not low lying. There are Grade 1 placental changes. The cervix measures 3.8 cm in length. The adnexal regions are not visualized. BIOMETRY: BPD: 4.61 cm: 19 weeks, 6 days HC: 17.08 sign: 19 weeks, 4 days AC: 14.67 cm: 19 weeks, 6 days FL: 3.02 cm: 9 weeks, 2 days CI: 79% FL/BPD: 65% FL/HC: FL/AC: 21% HC/AC: 1.16 age by current US: 19 weeks, 4 days. LINDA by current US: 08/30/2020. Estimated weight: 306 grams, +/- 45 grams, 35 %. Age by LMP: 19 weeks, 5 days. LINDA by LMP: August 29 2020. ANATOMY: Gender: Male Cranium: Normal lateral ventricles. Normal choroid plexus. Normal cerebellum. Normal cisterna magna. Normal face, nose and lips. Chest: Normal 4-chamber heart. Abdomen/Pelvis: Normal diaphragm. Normal stomach. Normal abdominal wall. Normal cord insertion. Normal 3 vessel cord. Normal kidneys. Normal bladder. Spine: Normal cervical spine. Normal thoracic spine. Normal lumbar spine. Normal sacrum. Extremities: Normal bilateral upper extremities. Normal bilateral lower extremities. US/OB Anatomy Scan IMPRESSION: Single live uterine gestation with a mean gestational age of 19 weeks and 4 days. Electronically Signed: Hank Quinonez, at 14:05 EDT , Service support ,
== END ==
PROVIDERS: Referring Provider Obstetrics & Gynecology; Visit Provider Obstetrics & Gynecology
DX: Z34.92 Encounter for supervision of normal pregnancy, unspecified, second trimester (principal)
CPT/HCPCS: 76805; 76817

== ENCOUNTER → 2022-04-02 | Outpatient (CLI) | payer SELFPAY ==
[2022-04-02 16:25] LABS: Absolute Neutrophil Count 6.3 X10^3/uL (2.0-7.7); Basophil# 0.02 X10^3/uL; Basophil% 0.2 % (0-1); Eosinophil# 0.47 X10^3/uL; Eosinophils% 5.1 % (0-5); Hematocrit 34.5 % (37-47); Hemoglobin 11.8 g/dL (12.0-15.0); Lymphocyte % 17.4 % (19-41); Mean Corp Hgb Conc 34.2 g/dL (32-36); Mean Corpuscular Volume 90.6 fL (81-99); Mean Platelet Vol. 10.6 fl (6.2-12.0); Monocyte# 0.76 X10^3/uL; Monocyte% 8.3 % (0-10); NRBC Flagged by Analyzer 0 % (0-5); Neutrophil # 6.28 X10^3/uL (2.7-7.7); Neutrophil % 68.5 % (47-70); Platelet Count 203 K/mm3 (150-450); RBC Distribution Width CV 13.5 % (11.6-14.6); RBC Distribution Width SD 44.9 fl (35.1-43.9); Red Blood Count 3.81 M/mm3 (4.2-5.4); White Blood Count 9.2 K/mm3 (4.4-11.0)
[2022-04-02 16:42] LABS: Glucose Challenge Gest 1H 50g 93 mg/dL (70-140)
[2022-04-05 08:24] LABS: Rubella IgG Non-Reactive (Nonreactive)
== END | disposition home or self-care (01) ==
LOC: LAB 16:00
PROVIDERS: Referring Provider Obstetrics & Gynecology; Visit Provider Obstetrics & Gynecology
DX: Z34.92 Encounter for supervision of normal pregnancy, unspecified, second trimester (principal)
CPT/HCPCS: 36415; 82950; 85025; 86762; 86850; 86900; 86901

== ENCOUNTER → 2022-04-16 | Outpatient (CLI) | payer SELFPAY ==
--- NOTE | 2022-04-16 14:06 | US_ITS ---
STUDY: SECOND AND THIRD TRIMESTER OBSTETRICAL ULTRASOUND - LIMITED REASON FOR EXAM: Female, 37 years old. previa PRIOR ULTRASOUND: None. TECHNIQUE: Transabdominal and Transvaginal TECHNICAL QUALITY: Adequate. FINDINGS: There is a single intrauterine fetus. The fetus is in a breech presentation. There is demonstrated cardiac activity with a heart rate of 153 bpm. There is a normal amniotic fluid volume. The largest amniotic fluid pocket measures 7.7 cm. The amniotic fluid index (ROBERT) is cm. The placenta is anterior in location and is not low lying. There are Grade 0 placental changes. Placental lewis noted measuring 18 x 19mm. The cervix measures cm in length:3.4 . Age by LMP: 27 weeks, 5 days. LINDA by LMP: 11..22. US/OB Limited (No Biometrics) IMPRESSION: There is a single live intrauterine with a heart rate of 153 bpm. Age by LMP: 27 weeks, 5 days. LINDA by LMP: 11.26.22. There is no placenta previa. Electronically Signed: Venancio Murray MD at 17:08 EDT ,
== END | disposition home or self-care (01) ==
PROVIDERS: Referring Provider Obstetrics & Gynecology; Visit Provider Obstetrics & Gynecology
DX: O44.00 Complete placenta previa NOS or without hemorrhage, unspecified trimester (principal); Z3A.00 Weeks of gestation of pregnancy not specified
CPT/HCPCS: 76815; 76817

== ENCOUNTER → 2022-05-28 | Outpatient (CLI) | payer SELFPAY ==
[2022-05-28 15:18] LABS: ALB/GLOB Ratio 0.6 RATIO (0.9-2.4); AST(SGOT) 8 U/L (15-37); Alanine Aminotransfer ALT/SGPT 15 U/L (13-56); Albumin, Serum 2.6 g/dL (3.2-5.0); Alkaline Phosphatase 66 U/L (45-117); Anion Gap 8 (5-15); BUN 11 mg/dL (7-18); BUN/Creat Ratio 23.8 RATIO (10-20); Calcium,Total 8.9 mg/dL (8.5-10.1); Chloride 109 mmol/L (98-107); Creatinine, Serum 0.46 mg/dL (0.55-1.02); EST Glomerular Filtration Rate 160 mL/min (>60); Est Glom Filt Rate - Afr Amer 193 mL/min (>60); Glucose 96 mg/dL (74-106); Potassium 3.7 mmol/L (3.5-5.1); Protein, Total 6.6 g/dL (6.4-8.2); Sodium Level 139 mmol/L (136-145)
== END | disposition home or self-care (01) ==
PROVIDERS: Visit Provider Obstetrics & Gynecology
DX: O99.713 Diseases of the skin and subcutaneous tissue complicating pregnancy, third trimester (principal); L29.9 Pruritus, unspecified; Z3A.00 Weeks of gestation of pregnancy not specified
CPT/HCPCS: 36415; 80053

== ENCOUNTER → 2022-06-18 | Outpatient (CLI) | payer OTHER, SELFPAY | END | disposition home or self-care (01) | LOC: LABSPEC 16:26 | PROVIDERS: Visit Provider Obstetrics & Gynecology | DX: O09.90 Supervision of high risk pregnancy, unspecified, unspecified trimester (principal); Z3A.00 Weeks of gestation of pregnancy not specified | CPT/HCPCS: 87077; 87081; 87186 ==

== ENCOUNTER → 2022-06-25 | Outpatient (CLI) | payer SELFPAY ==
[2022-06-25 16:43] LABS: ALB/GLOB Ratio 0.7 RATIO (0.9-2.4); AST(SGOT) 15 U/L (15-37); Alanine Aminotransfer ALT/SGPT 17 U/L (13-56); Albumin, Serum 2.5 g/dL (3.2-5.0); Alkaline Phosphatase 84 U/L (45-117); Anion Gap 7 (5-15); BUN 11 mg/dL (7-18); Calcium,Total 8.5 mg/dL (8.5-10.1); Chloride 108 mmol/L (98-107); EST Glomerular Filtration Rate 146 mL/min (>60); Est Glom Filt Rate - Afr Amer 177 mL/min (>60); Globulin 3.7 g/dL (2.2-4.2); Glucose 99 mg/dL (74-106); Potassium 3.5 mmol/L (3.5-5.1); Protein, Total 6.2 g/dL (6.4-8.2); Sodium Level 138 mmol/L (136-145)
== END | disposition home or self-care (01) ==
LOC: LAB 15:32
PROVIDERS: Referring Provider Obstetrics & Gynecology; Visit Provider Obstetrics & Gynecology
DX: O99.713 Diseases of the skin and subcutaneous tissue complicating pregnancy, third trimester (principal)
CPT/HCPCS: 36415; 80053

== ENCOUNTER 2022-07-15 17:15 | Inpatient (IN) | payer SELFPAY, OTHER ==
[2022-07-15] VITALS (11 sets, daily range): BP systolic 108–123; BP diastolic 64–70; PULSE 83–103; TEMP 36.3–36.8; O2SAT 82–96; BMI 35.9
[2022-07-15] MEDS: LACTATED RINGERS 500 ML 999 ML IV ×2 (17:30→22:14)
[2022-07-15 17:48] LABS: Absolute Lymphocyte Count 1.86 X10^3/uL (0.83-4.51); Absolute Neutrophil Count 8.1 X10^3/uL (2.0-7.7); Basophil# 0.02 X10^3/uL; Basophil% 0.2 % (0-1); Eosinophil# 0.28 X10^3/uL; Eosinophils% 2.5 % (0-5); Hematocrit 37.8 % (37-47); Hemoglobin 12.4 g/dL (12.0-15.0); Lymphocyte # 1.86 X10^3/ul (0.83-4.51); Lymphocyte % 16.6 % (19-41); Mean Corp Hgb Conc 32.8 g/dL (32-36); Mean Corpuscular Hgb 28.7 pg (27.0-32.0); Mean Corpuscular Volume 87.5 fL (81-99); Mean Platelet Vol. 10.5 fl (6.2-12.0); Monocyte% 8.1 % (0-10); NRBC Flagged by Analyzer 0 % (0-5); Neutrophil # 8.08 X10^3/uL (2.7-7.7); Neutrophil % 72.2 % (47-70); Platelet Count 217 K/mm3 (150-450); RBC Distribution Width CV 14.3 % (11.6-14.6); RBC Distribution Width SD 45.6 fl (35.1-43.9); Red Blood Count 4.32 M/mm3 (4.2-5.4); White Blood Count 11.2 K/mm3 (4.4-11.0)
[2022-07-15] MEDS: Lactated Ringers 1,000 ML 200 ML IV (18:01)
[2022-07-15 18:50] LABS: Syphilis Antibodies Non-reactive
[2022-07-15 19:09] LABS: HIV - WCH Non-Reactive (Nonreactive); Hepatitis B Surface Antigen Non-Reactive (Nonreactive); Hepatitis C Antibody Non-Reactive (Nonreactive)
[2022-07-15 20:41] LABS: Chlamydia Trachomatis by PCR Negative (Negative); Neisserai gonorrhoeae by PCR Negative (Negative); Probe Check PASS; Sample Adequacy Control PASS; Specimen Processing Control PASS
[2022-07-15] MEDS: Penicillin G 3,000,000 Units 50 ML 100 UNITS IV (21:59)
[2022-07-15] MEDS: Ondansetron 4 MG/2 ML Vial IV (22:29)
[2022-07-15] MEDS: 0.9% Saline Lock 10 ML Syringe IV (22:29)
[2022-07-15] MEDS: Oxytocin 15 Units/NS 250ml 15 UNITS/250 ML IV.SOLN 83 UNITS IV (23:58)
[2022-07-16] VITALS (43 sets, daily range): BP systolic 88–128; BP diastolic 50–78; PULSE 68–105; RESP 14–18; TEMP 36.1–36.9; O2SAT 89–100
[2022-07-16] MEDS: Oxytocin 10 UNITS/ML Vial IM
[2022-07-16] MEDS: Methylergonovine 0.2 MG/ML Ampul IM (00:02)
[2022-07-16] MEDS: Carboprost Tromethamine 250 MCG/ML Ampul IM (00:05)
[2022-07-16] MEDS: proCHLORPERazine 10 MG/2 ML Vial IV (00:31)
--- NOTE | 2022-07-16 01:29 | HP.PCM.OB_ITS ---
HPI - General General Date of Admission: 07/15/22 HPI Narrative CORA CEBALLOS, is a 37 F who presents IAL 4 cm dilated no vb lof admits good fm Maternal Data Information LINDA Calculator Estimated Delivery Date Method Current WG Current Estimate 07/10/22 LMP (Certain) 40w 6d PFSH PFSH Medical History (Updated 07/15/22 @ 19:25 by Sonia Cobos) History of thyroid disease Lyme disease Positive GBS test Superficial varicosities Home Medications vitamin#30 30 mg iron-10 mg iron-folic acid 1 mg-omg3 capsule 1 cap PO TID 04/09/20 [History Last Taken Unknown] hydroxyzine HCl 25 mg tablet 12.5 mg PO QHS itching 07/15/22 [History Last Taken 1 Day Ago ~07/14/22] Allergy/AdvReac Type Severity Reaction Status Date / Time latex Allergy Mild rash Verified 07/14/22 11:05 Family History Unknown Cancer Surgical History History of delivery Social History adopted: No household members: spouse and children housing: house number of children: 3 current occupational status: unemployed pets and animals: No history of recent travel: Yes ([place]) out of state: Yes out of country: No sexually active: Yes Smoking Status: Never smoker alcohol intake: never substance use type: does not use well-balanced diet: daily or most days caffeine: Yes Type: coffee Number of servings: 1 eating out: rarely or never what type of physical activity do you participate in: walking seatbelt use: always do you feel safe at home: Yes additional social history: Monae Ortega Patient 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 Date Name GA/Weeks Outcome Route Bth Weight Gen Labor Lgth Anesthesia Del Locatn Provider FOB Unknown 2015 Zakia live - full term Modesto Acosta Unknown 09/04/20 Cirilo 41 live - full term 8#5oz Male 32 hours none Manjeet Azevedo 11/24/18 Denny 41 live - full term Male s radha [facility] Delivery Date: 11/24/18 Last Updated by: Heydi Potter prev C/S; DM Visit Details Expected Delivery Route/Plan TOLAC patient counseled regarding risks/benefits of trial of labor versus repeat . ACOG/uptodate education given to patient. [] % likelihood of success per calculator TOLAC consent form signed: [] Plans Covid status: [] Flu vaccine: [] Tdap vaccine: [] Rhogam: [] LARC form signed: [] Problem list reviewed and updated with the most current plan of care details and appropriate orders placed. Relevant counseling for the gestational age provided. Continue routine care and follow up unless otherwise noted in visit notes/problem list details OB Flowsheet Initial Weight: Not Recorded Date -?-?-?-?-?-?-?-?-?-?-?-?- EGA Weight BP Urine Prot -?-?-?-?-?-?-?-?-?-?-?-?- Glucose FHR FuHt Pres Dilation -?-?-?-?-?-?-?-?-?-?-?-?- Effaced St Visit Note 04/02/22 -?-?-?-?-?-?-?-?-?-?-?-?- 25w 6d 185 lb 100/76 -?-?-?-?-?-?-?-?-?-?-?-?- 150 26 -?-?-?-?-?-?-?-?-?-?-?-?- SM- bedside ultr asound done and placenta anterior moving upward close to more fundal, possible still partial previa, reocmmend await repeat ultrasound formally at next appointment if still previa needs MFM evaluation 04/16/22 -?-?-?-?-?-?-?-?-?-?-?-?- 27w 6d 187 lb 102/62 Negative -?-?-?-?-?-?-?-?-?-?-?-?- Negative 150 29 -?-?-?-?-?-?-?-?-?-?-?-?- JV- no lof ,vagi nal bleeding, or dec fm. pt has appt to confirm previa/accreta today. will call with results. understands will need delivered in [place] if accreta. 04/30/22 -?-?-?-?-?-?-?-?-?-?-?-?- 29w 6d 187 lb 97/62 -?-?-?-?-?-?-?-?-?-?-?-?- 145 30 -?-?-?-?-?-?-?-?-?-?-?-?- SM- no vb lof go od fm noregular ctx 05/13/22 -?-?-?-?-?-?-?-?-?-?-?-?- 31w 5d 186 lb 6 oz 99/64 Nega tive -?-?-?-?-?-?-?-?-?-?-?-?- Negative 140 -?-?-?-?-?-?-?-?-?-?-?-?- JV- no lof, vagi nal bleeding, or dec fm. pt is not gdm but is checking glucose levels fasting and s tates some are over 100, most are in the 90's 05/28/22 -?-?-?-?-?-?-?-?-?-?-?-?- 33w 6d 193 lb 3.2 oz 98/63 Ne lukasz -?-?-?-?-?-?-?-?-?-?-?-?- Negative 140 34 -?-?-?-?-?-?-?-?-?-?-?-?- SM_ no vb lof go od fm no regular ctx 06/07/22 -?-?-?-?-?-?-?-?-?-?-?-?- 35w 2d 191 lb 6 oz 103/68 Nega tive -?-?-?-?-?-?-?-?-?-?-?-?- Negative 145 36 Cephalic -?-?-?-?-?-?-?-?-?-?-?-?- LC- cont with it omar palms, abdomen and soles of feets. bile acids pending. LC- cont with itching palms, abdomen and soles of feets. bile acids pending. desires to hold off ursodiol until results in. good fm, no ctx,lof,vb. 06/18/22 -?--?-?-?-?-?-?-?-?-?-?-?- 36w 6d 191 lb 8 oz 93/67 Nega tive -?-?-?-?-?-?-?-?-?-?-?-?- Negative 145 37 Cephalic 1 -?-?-?-?-?-?-?-?-?-?-?-?- 0 -4 JV- pt sti ll itching. Bile acids normal. pt states that she thinks it may be due to h/o lyme disease. per uptodate, there are no concerns for patients diagnosed and treated for lyme disease prior to 06/25/22 -?-?-?-?-?-?-?-?-?-?-?-?- 37w 6d 193 lb 2 oz 98/65 Nega tive -?-?-?-?-?-?-?-?-?-?-?-?- Negative 135 38 Cephalic 1 -?-?--?-?-?-?-?-?-?-?-?-?- 50 -3 JV- orderi ng vistaril and repeating bile acids/ cmp. 07/02/22 -?-?-?-?-?-?-?-?-?-?-?-?- 38w 6d 194 lb 97/62 Negative -?-?-?-?--?-?-?-?-?-?-?-?- Negative 135 39 2 -?-?-?-?-?-?-?-?-?-?-?-?- SM- no vb lof go od fm no regular ctx, repeat bile acids pending 07/06/22 -?-?-?-?-?-?-?-?--?-?-?-?- 39w 3d 194 lb 6 oz 96/63 Nega tive -?-?-?-?-?-?-?-?-?-?-?-?- Negative 146 Cephalic 2 -?-?-?-?-?-?-?-?-?-?-?-?- 70 - JV- no lof , vaginal bleeding, or dec fm. vistaril helped. bile acids normal. membranes swept 07/14/22 -?-?-?-?-?-?-?-?-?-?-?-?- 40w 4d 194 lb 8 oz 102/69 Nega tive -?-?-?-?-?--?-?-?-?-?-?-?- Negative 139 37 Cephalic 2 .5 -?-?-?-?-?-?-?-?-?-?-?-?- 70 - FERN JV- pt would like to wait tuesday for iol. consents signed. 07/15/22 -?-?-?-?-?-?-?-?-?-?-?-?- 40w 5d 196 lb 10.437 oz 123 /70 108/64 113/68 120/68 111/66 112/72 128/70 126/70 100/57 112/68 116/73 -?-?-?-?-?-?-?-?-?-?-?-?- -?-?-?-?-?-?-?-?-?-?-?-?- ROS Constitutional Constitutional: Reports systems reviewed and no addt'l complaints, except as documented Cardiovascular Cardiovascular: Reports systems reviewed and no addt'l complaints, except as documented Respiratory/Chest Respiratory/Chest: Reports systems reviewed and no addt'l complaints, except as documented Gastrointestinal Gastrointestinal: Reports systems reviewed and no addt'l complaints, except as documented Vital Signs Vital Signs Vital Signs: 07/15/22 17:00 07/15/22 17:00 07/15/22 19:23 Temperature Temperature Source Pulse Rate 86 88 Blood Pressure 123/70 H BP Systolic 123 BP Diastolic 70 Pulse Ox 07/15/22 19:23 07/15/22 19:22 07/15/22 19:22 Temperature 97.6 F L Temperature Source Temporal Pulse Rate Blood Pressure BP Systolic BP Diastolic Pulse Ox 95 07/15/22 19:25 07/15/22 19:25 07/15/22 21:11 Temperature Temperature Source Pulse Rate 87 Blood Pressure 108/64 113/68 BP Systolic 108 113 BP Diastolic 64 68 Pulse Ox 07/15/22 21:11 07/15/22 21:11 07/15/22 21:12 Temperature Temperature Source Pulse Rate 99 Blood Pressure BP Systolic BP Diastolic Pulse Ox 95 82 07/15/22 21:12 07/15/22 21:12 07/15/22 22:35 Temperature 98.2 F Temperature Source Temporal Pulse Rate 103 H Blood Pressure BP Systolic BP Diastolic Pulse Ox 07/15/22 22:35 07/15/22 22:36 07/15/22 22:37 Temperature Temperature Source Temporal Pulse Rate Blood Pressure 120/68 BP Systolic 120 BP Diastolic 68 Pulse Ox 96 07/15/22 22:37 07/15/22 22:36 07/15/22 23:30 Temperature 97.6 F L Temperature Source Temporal Pulse Rate 83 Blood Pressure BP Systolic BP Diastolic Pulse Ox 07/15/22 23:30 07/15/22 23:31 07/15/22 23:31 Temperature 97.3 F L Temperature Source Pulse Rate 87 Blood Pressure 111/66 BP Systolic 111 BP Diastolic 66 Pulse Ox 07/16/22 00:09 07/16/22 00:09 07/16/22 00:11 Temperature Temperature Source Pulse Rate 104 H Blood Pressure 112/72 BP Systolic 112 BP Diastolic 72 Pulse Ox 100 07/16/22 00:11 07/16/22 00:11 07/16/22 00:14 Temperature 97.0 F L Temperature Source Pulse Rate 105 H 96 Blood Pressure BP Systolic BP Diastolic Pulse Ox 07/16/22 00:14 07/16/22 00:19 07/16/22 00:19 Temperature Temperature Source Pulse Rate 96 Blood Pressure BP Systolic BP Diastolic Pulse Ox 99 99 07/16/22 00:24 07/16/22 00:24 07/16/22 00:29 Temperature Temperature Source Pulse Rate 92 90 Blood Pressure BP Systolic BP Diastolic Pulse Ox 99 07/16/22 00:29 07/16/22 00:34 07/16/22 00:34 Temperature Temperature Source Pulse Rate 86 Blood Pressure BP Systolic BP Diastolic Pulse Ox 99 98 07/16/22 00:35 07/16/22 00:35 07/16/22 00:39 Temperature Temperature Source Pulse Rate 86 94 Blood Pressure 128/70 H BP Systolic 128 BP Diastolic 70 Pulse Ox 07/16/22 00:39 07/16/22 00:42 07/16/22 00:42 Temperature Temperature Source Pulse Rate 82 Blood Pressure 126/70 H BP Systolic 126 BP Diastolic 70 Pulse Ox 98 07/16/22 00:44 07/16/22 00:44 07/16/22 00:49 Temperature Temperature Source Pulse Rate 86 91 Blood Pressure BP Systolic BP Diastolic Pulse Ox 100 07/16/22 00:49 07/16/22 00:52 07/16/22 00:52 Temperature 97.4 F L Temperature Source Temporal Pulse Rate Blood Pressure BP Systolic BP Diastolic Pulse Ox 99 07/16/22 00:54 07/16/22 00:54 07/16/22 00:11 Temperature 97.0 F L Temperature Source Pulse Rate 90 Blood Pressure BP Systolic BP Diastolic Pulse Ox 97 07/16/22 00:57 07/16/22 00:57 07/16/22 00:59 Temperature Temperature Source Pulse Rate 85 83 Blood Pressure 100/57 L BP Systolic 100 BP Diastolic 57 Pulse Ox 07/16/22 00:59 07/16/22 01:04 07/16/22 01:04 Temperature Temperature Source Pulse Rate 84 Blood Pressure BP Systolic BP Diastolic Pulse Ox 97 98 07/16/22 01:09 07/16/22 01:09 07/16/22 01:12 Temperature Temperature Source Pulse Rate 82 Blood Pressure 112/68 BP Systolic 112 BP Diastolic 68 Pulse Ox 98 07/16/22 01:12 07/16/22 01:14 07/16/22 01:14 Temperature Temperature Source Pulse Rate 85 82 Blood Pressure BP Systolic BP Diastolic Pulse Ox 99 07/16/22 01:19 07/16/22 01:19 07/16/22 01:23 Temperature Temperature Source Pulse Rate 82 81 Blood Pressure BP Systolic BP Diastolic Pulse Ox 98 07/16/22 01:23 07/16/22 01:24 07/16/22 01:24 Temperature Temperature Source Pulse Rate 85 Blood Pressure BP Systolic BP Diastolic Pulse Ox 94 92 07/16/22 01:27 07/16/22 01:27 07/16/22 01:25 Temperature 97.4 F L Temperature Source Pulse Rate 80 Blood Pressure 116/73 BP Systolic 116 BP Diastolic 73 Pulse Ox 07/16/22 01:25 Temperature Temperature Source Temporal Pulse Rate Blood Pressure BP Systolic BP Diastolic Pulse Ox Weight Weight: 196 lb 10.437 oz Body Mass Index (BMI) 35.9 Physical Exam Const alert, oriented x3 and no apparent distress HEENT Head and Scalp: atraumatic Resp normal respiratory effort GI soft to palpation and non-tender Bimanual Exam - Vag & Uterus: uterus non-tender Uterus Palpation: uterus fundus firm (below Umbilicus) Labs Labs Labs: Blood Type A POSITIVE Antibody Screen NEGATIVE Hct 37.8 % (37-47) Hgb 12.4 g/dL (12.0-15.0) Obstetrics US Syphilis Total Ab Non-reactive Rubella IgG Antibody Non-Reactive (Nonreactive) Hep Bs Antigen Non-Reactive (Nonreactive) HIV 1&2 Antibody Non-Reactive (Nonreactive) Glucose 1 Hr 50 gm 93 mg/dL (70-140) Group B Strep DNA Negative (Negative) Rhogam given: No Miscellaneous Test Assessment & Plan (1) Desires (vaginal after ) trial: COMMENT: 2 previous cesareans, one successful . was seeing cora strickland. (2) : QUALIFIERS: Weeks of gestation: 40 weeks Qualified Code(s): Z3A.40 - 40 weeks gestation of (3) Supervision of high risk , antepartum: COMMENT: [id number], LINDA 07/10/22, surprise PC Zakia, Denny, Cirilo Spouse Jolly (4) Hx of section: COMMENT: 2 c-sections one after. discussed will provider care for hospital only (5) Hx of gestational diabetes in prior , currently : COMMENT: ordered 1 hr gct (6) Pruritus of in third trimester: COMMENT: cmp bile acids ordered, 06/11 nl bile acids pt belives due to chronic lyme disease. per uptodate, no concerns for patients diagnosed and treated for lyme disease prior to . (7) Positive GBS test: PLAN: Plan Patient presents IAL, plan expectant management for , pitocin/AROM PRN if needed. Pain management: natural. GBS positive plan IV PCN. Management of any complications: none I have reviewed the [facility] and made any clinically relevant updates.
--- NOTE | 2022-07-16 01:54 | EX.PCM.OBRPT ---
Assessment & Plan (1) Desires (vaginal after ) trial: COMMENT: 2 previous cesareans, one successful . was seeing sophie strickland. (2) : QUALIFIERS: Weeks of gestation: 40 weeks Qualified Code(s): Z3A.40 - 40 weeks gestation of (3) Supervision of high risk , antepartum: COMMENT: [id number], LINDA 07/10/22, surprise PC Zakia, Denny, Cirilo Spouse Jolly (4) Hx of section: COMMENT: 2 c-sections one after. discussed will provider care for hospital only (5) Hx of gestational diabetes in prior , currently : COMMENT: ordered 1 hr gct (6) Pruritus of in third trimester: COMMENT: cmp bile acids ordered, 06/11 nl bile acids pt belives due to chronic lyme disease. per uptodate, no concerns for patients diagnosed and treated for lyme disease prior to . (7) Positive GBS test: (8) hemorrhage: COMMENT: atony, hemabate methergine massage pitocin Maternal Data Information LINDA Calculator Estimated Delivery Date Method Current WG Current Estimate 07/10/22 LMP (Certain) 41w 2d Vaginal Delivery Operative Information Pre-Operative Diagnosis: IAL Post-Operative Diagnosis: same Surgery / Procedure Performed: Spontaneous Vaginal Delivery Type of Anesthesia: Epidural Special Medications: none Estimated Blood Loss: 100 Fluids Replaced: crystalloid Findings Description of Procedure: Patient began pushing and delivered the head in the DONITA presentation. The head was delivered atraumatically . The anterior and posterior shoulders delivered without complication followed by the rest of the infant and the infant was placed on the maternal abdomen. Delayed cord clamping was employed for approximately 60 seconds. Cord was clamped and cut and gentle traction was applied to the cord and the placenta delivered spontaneously immediately following it was noted to be intact with three-vessel cord. The perineum and vagina were inspected and noted to have no laceration. EBL was 500 cc with moderate atony treated with methergine hemabate and massage, pitocin. Patient and infant tolerated delivery well. Presentation: DONITA Amniotic Fluid Description: Clear Placental Delivery Description: Spontaneous Placenta Disposition: [facility] Cord Vessel Description: 3 Vessels Cord Entanglement: None Delayed Cord Clamping: Yes Post Vaginal Delivery Medications Given After Delivery: IV Pitocin Episiotomy Description: None Laceration: None Complication Complications: None Multi Select Codes Urinary/Genital Urinary/Genital CPT Codes: 33735 delivery global pkg
[2022-07-16] MEDS: Naproxen 500 MG Tablet PO ×2 (05:31→14:33)
[2022-07-16 05:34] LABS: Hematocrit 31.9 % (37-47); Hemoglobin 10.7 g/dL (12.0-15.0); Mean Corp Hgb Conc 33.5 g/dL (32-36); Mean Corpuscular Hgb 29.2 pg (27.0-32.0); Mean Corpuscular Volume 87.2 fL (81-99); Mean Platelet Vol. 10.5 fl (6.2-12.0); Platelet Count 224 K/mm3 (150-450); RBC Distribution Width CV 14.4 % (11.6-14.6); RBC Distribution Width SD 46.1 fl (35.1-43.9); Red Blood Count 3.66 M/mm3 (4.2-5.4); White Blood Count 18.2 K/mm3 (4.4-11.0)
[2022-07-16] MEDS: hydrOXYzine 10 MG Tablet PO (09:51)
--- NOTE | 2022-07-19 08:13 | DCINST_ITS ---
Discharge Instructions Diet Discharge Diet: No restrictions Activity Discharge Activity: Return to Normal Activity, May Drive, May Shower and May Take a Tub Bath (in 4 weeks) May resume sexual activity in: 6-8 weeks (after seen by OB provider) Weight Bearing Status: Full weight bearing Lifting Restrictions: none Dressing / Incision Call your doctor if you observe: Fever of 101 or Higher, Inability to urinate, Using more than 1 pad per hour (for more than 2 hours in a row or more), Shortness of breath, Dizziness, Chest pain and - (headache not controlled with tylenol, change in vision) Follow Up Care When: in 6 weeks for visit, call the office to make the appointment. If you had elevated blood pressures call the office to be seen within 1 week. Test Results: Test results from this visit will be discussed in further detail at your follow- up appointment, if applicable. Discharge Plan Admission Admit Date/Time: 07/15/22 17:15 Attending Provider: Deena Reese Primary Care Provider: Care Physician,Celsa Primary Discharge Orders/Prescriptions Prescriptions: No Action vitamin#30 30 mg iron-10 mg iron-folic acid 1 mg-omg3 capsule 30 mg iron-10 mg iron-1 mg capsule 1 cap PO TID hydroxyzine HCl 25 mg tablet 12.5 mg PO QHS Referrals / Follow Up: Care Physician,No Primary [Primary Care Provider] - Disposition Disposition (needs filled in before D/C Order can be placed): Home, Self Care
== END 2022-07-16 19:00 | disposition home or self-care (01) | DRG 806 ==
LOC: WP 17:18 → WPOUT 07-19 10:51
PROVIDERS: Admitting Provider Obstetrics & Gynecology; Visit Provider Obstetrics & Gynecology
DX: O34.219 Maternal care for unspecified type scar from previous cesarean delivery (principal); Z37.0 Single live birth; O72.1 Other immediate postpartum hemorrhage; A69.20 Lyme disease, unspecified; O98.82 Other maternal infectious and parasitic diseases complicating childbirth; O99.824 Streptococcus B carrier state complicating childbirth; Z3A.40 40 weeks gestation of pregnancy; Z86.39 Personal history of other endocrine, nutritional and metabolic disease; Z86.32 Personal history of gestational diabetes
CPT/HCPCS: 59025; 59050; 85025; 85027; 86703; 86780; 86803; 86850; 86900; 86901; 87340; 87491; 87591; 99218; J7120; A4216; G0378; J2405

== ENCOUNTER → 2023-12-30 | Outpatient (CLI) | payer SELFPAY ==
[2024-01-03 00:07] LABS: Chlamydia By Nucleic Acid AMP Negative (Negative); Gonococcus By Nucleic Acid AMP Negative (Negative)
[2024-01-06 00:07] LABS: HPV APTIMA, High Risk Negative (Negative)
== END | disposition home or self-care (01) ==
LOC: LABSPEC 17:07
PROVIDERS: Referring Provider Advanced Practice Midwife; Visit Provider Advanced Practice Midwife
DX: O09.90 Supervision of high risk pregnancy, unspecified, unspecified trimester (principal); Z3A.00 Weeks of gestation of pregnancy not specified
CPT/HCPCS: 87086; 87088; 87491; 87591; 87624; 88175; G0145

== ENCOUNTER → 2024-01-05 | Outpatient (CLI) | payer SELFPAY ==
--- NOTE | 2024-01-05 11:06 | VDLE_ITS ---
Reason For Study: Left leg pain RIGHT LEFT CFV is compressible, spontaneous, phasic, GSV is normal. competent and demonstrates normal CFV is compressible, spontaneous, phasic, augmentation. competent, and demonstrates normal Procedure augmentation. This is a venous duplex using B-mode, color FV is compressible, spontaneous, phasic, flow and spectral Doppler. competent and demonstrates normal Exam performed in department. augmentation. A preliminary report was called and/or faxed POP V is compressible, spontaneous, phasic, to Dr. Dey. competent and demonstrates normal augmentation. T/P Trunk is compressible. PTV is compressible. LT PerV is compressible. VL/Venous Duplex US, Unilateral Interpretation Summary Deep veins of the left lower extremity are patent and compressible segmentally. There is no evidence of left lower extremity deep vein thrombosis. The left great saphenous vein remi ears patent and compressible segmentally. Ordering Physician: Ankita Dey Performed By: Eden Hirsch RVT
== END | disposition home or self-care (01) ==
PROVIDERS: Referring Provider Obstetrics & Gynecology; Visit Provider Obstetrics & Gynecology
DX: M79.605 Pain in left leg (principal)
CPT/HCPCS: 93971

== ENCOUNTER → 2024-02-10 | Outpatient (CLI) | payer SELFPAY ==
[2024-02-10 16:47] LABS: Absolute Lymphocyte Count 1.57 X10^3/uL (0.83-4.51); Absolute Neutrophil Count 5.9 X10^3/uL (2.0-7.7); Basophil# 0.02 X10^3/uL; Basophil% 0.2 % (0-1); Eosinophils% 2.4 % (0-5); Hematocrit 33.8 % (37-47); Hemoglobin 11.4 g/dL (12.0-15.0); Lymphocyte # 1.57 X10^3/ul (0.83-4.51); Lymphocyte % 18.7 % (19-41); Mean Corp Hgb Conc 33.7 g/dL (32-36); Mean Corpuscular Volume 88.9 fL (81-99); Mean Platelet Vol. 10.8 fl (6.2-12.0); Monocyte# 0.64 X10^3/uL; Monocyte% 7.6 % (0-10); NRBC Flagged by Analyzer 0 % (0-5); Neutrophil # 5.92 X10^3/uL (2.7-7.7); Neutrophil % 70.7 % (47-70); Platelet Count 212 K/mm3 (150-450); RBC Distribution Width CV 13.8 % (11.6-14.6); RBC Distribution Width SD 44.6 fl (35.1-43.9); White Blood Count 8.4 K/mm3 (4.4-11.0)
[2024-02-10 17:09] LABS: Hemoglobin A1c 4.9 % (3.8-5.6)
[2024-02-10 17:44] LABS: HIV - WCH Non-Reactive (Nonreactive); Hepatitis B Surface Antigen Non-Reactive (Nonreactive); Hepatitis C Antibody Non-Reactive (Nonreactive); Rubella IgG Non-Reactive (Nonreactive); Syphilis Antibodies Non-reactive
== END | disposition home or self-care (01) ==
LOC: LAB 16:27
PROVIDERS: PCP Physician Assistant; Referring Provider Advanced Practice Midwife; Visit Provider Advanced Practice Midwife
DX: O99.210 Obesity complicating pregnancy, unspecified trimester (principal); Z3A.00 Weeks of gestation of pregnancy not specified
CPT/HCPCS: 36415; 83036; 85025; 86703; 86762; 86780; 86803; 86850; 86900; 86901; 87340

== ENCOUNTER → 2024-02-28 | Outpatient (CLI) | payer SELFPAY ==
--- NOTE | 2024-02-28 13:41 | US_ITS ---
STUDY: SECOND AND THIRD TRIMESTER OBSTETRICAL ULTRASOUND REASON FOR EXAM: Female, 38 years old anatomy scan LMP: TECHNIQUE: Transabdominal and Transvaginal TECHNICAL QUALITY: Adequate. PRIOR ULTRASOUND: None. FINDINGS: There is a single intrauterine fetus. The fetus is in an transverse lie with the head on the maternal left side. There is demonstrated cardiac activity with a heart rate of 158 bpm. There is a normal amniotic fluid volume. The largest amniotic fluid pocket measures 6.0 cm. The amniotic fluid index (ROBERT) is cm. The placenta is posterior in location and is not low lying. There are Grade 0 placental changes. The cervix measures 4.0 cm in length. The bilateral adnexal regions are normal. BIOMETRY: BPD: 5.0 cm: 21 weeks, 1 days HC: 18.4 cm: 20 weeks, 6 days AC: 15.6 cm: 20 weeks, 5 days FL: 3.4 cm: 20 weeks, 5 days CI: 78.49 FL/BPD: 67.94 FL/HC: 18.45 FL/AC: 21.85 HC/AC: 1.18 age by current US: 20 weeks, 5 days. LINDA by current US: 07/12/2024. Estimated weight: 378 grams, +/- 57 grams, 48 %. age by prior US: weeks, days. LINDA by prior US: . Age by LMP: 20 weeks, 5 days. LINDA by LMP: 07/12/2024. ANATOMY: Gender: Female Cranium: Normal lateral ventricles. Normal choroid plexus. Normal cerebellum. Normal cisterna magna. Normal face, nose and lips. Chest: Normal 4-chamber heart. Abdomen/Pelvis: Normal diaphragm. Normal stomach. Normal abdominal wall. Normal cord insertion. Normal 3 vessel cord. Normal kidneys. Normal bladder. Spine: Normal cervical spine. Normal thoracic spine. Normal lumbar spine. Normal sacrum. Extremities: Normal bilateral upper extremities. Normal bilateral lower extremities. US/OB Anatomy w/ Transvaginal IMPRESSION: Living intrauterine of 20 weeks 5 days as described above. Electronically Signed: James Mendenhall MD at 8:38 EDT , Refer to OB ultrasound Electronically Signed: James Mendenhall MD at 8:38 EDT ,
== END | disposition home or self-care (01) ==
PROVIDERS: PCP Physician Assistant; Referring Provider Obstetrics & Gynecology; Visit Provider Obstetrics & Gynecology
DX: O09.90 Supervision of high risk pregnancy, unspecified, unspecified trimester (principal); Z3A.00 Weeks of gestation of pregnancy not specified
CPT/HCPCS: 76805; 76817

== ENCOUNTER → 2024-04-26 | Outpatient (CLI) | payer SELFPAY ==
[2024-04-26 15:24] LABS: Absolute Lymphocyte Count 1.18 X10^3/uL (0.83-4.51); Absolute Neutrophil Count 5.3 X10^3/uL (2.0-7.7); Basophil# 0.01 X10^3/uL; Basophil% 0.1 % (0-1); Eosinophil# 0.31 X10^3/uL; Eosinophils% 4.2 % (0-5); Hematocrit 31.3 % (37-47); Hemoglobin 10.3 g/dL (12.0-15.0); Lymphocyte # 1.18 X10^3/ul (0.83-4.51); Lymphocyte % 15.9 % (19-41); Mean Corp Hgb Conc 32.9 g/dL (32-36); Mean Corpuscular Volume 91.3 fL (81-99); Mean Platelet Vol. 10.5 fl (6.2-12.0); Monocyte# 0.62 X10^3/uL; Monocyte% 8.3 % (0-10); NRBC Flagged by Analyzer 0 % (0-5); Neutrophil # 5.29 X10^3/uL (2.7-7.7); Neutrophil % 71.2 % (47-70); Platelet Count 187 K/mm3 (150-450); RBC Distribution Width CV 14.2 % (11.6-14.6); Red Blood Count 3.43 M/mm3 (4.2-5.4); White Blood Count 7.4 K/mm3 (4.4-11.0)
[2024-04-26 15:51] LABS: Glucose Challenge Gest 1H 50g 146 mg/dL (70-140)
== END | disposition home or self-care (01) ==
LOC: LAB 14:13
PROVIDERS: PCP Physician Assistant; Referring Provider Obstetrics & Gynecology; Visit Provider Obstetrics & Gynecology
DX: O09.92 Supervision of high risk pregnancy, unspecified, second trimester (principal); Z3A.00 Weeks of gestation of pregnancy not specified; Z13.1 Encounter for screening for diabetes mellitus
CPT/HCPCS: 36415; 82950; 85025

== ENCOUNTER → 2024-04-30 | Outpatient (CLI) | payer SELFPAY ==
[2024-04-30 07:39] LABS: Bedside Glucose 90 mg/dL (74-106)
[2024-04-30 08:02] LABS: Glucose GTT-Gestation. Fasting 101 mg/dL (<105)
[2024-04-30 09:17] LABS: Glucose GTT-Gestational 1 Hr 143 mg/dL (<190)
[2024-04-30 10:34] LABS: Glucose GTT-Gestational 2 Hr 85 mg/dL (<165)
[2024-04-30 11:22] LABS: Glucose GTT-Gestational 3 Hr 57 L (<145)
== END | disposition home or self-care (01) ==
LOC: LAB 06:44
PROVIDERS: PCP Physician Assistant; Referring Provider Obstetrics & Gynecology; Visit Provider Obstetrics & Gynecology
DX: R73.09 Other abnormal glucose (principal)
CPT/HCPCS: 36415; 82951; 82952; 82962

== ENCOUNTER → 2024-06-07 | Outpatient (CLI) | payer SELFPAY ==
[2024-06-07 15:59] LABS: ALB/GLOB Ratio 0.7 RATIO (0.9-2.4); AST(SGOT) 14 U/L (15-37); Alanine Aminotransfer ALT/SGPT 20 U/L (13-56); Albumin, Serum 2.5 g/dL (3.2-5.0); Alkaline Phosphatase 87 U/L (45-117); Anion Gap 6 (5-15); BUN 8 mg/dL (7-18); BUN/Creat Ratio 12.4 RATIO (10-20); Chloride 111 mmol/L (98-107); Creatinine, Serum 0.65 mg/dL (0.55-1.02); EST Glomerular Filtration Rate 107 mL/min (>60); Est Glom Filt Rate - Afr Amer 130 mL/min (>60); Globulin 3.7 g/dL (2.2-4.2); Glucose 99 mg/dL (74-106); Potassium 3.5 mmol/L (3.5-5.1); Protein, Total 6.2 g/dL (6.4-8.2); Sodium Level 141 mmol/L (136-145)
== END | disposition home or self-care (01) ==
PROVIDERS: PCP Physician Assistant; Referring Provider Obstetrics & Gynecology; Visit Provider Obstetrics & Gynecology
DX: L29.9 Pruritus, unspecified (principal)
CPT/HCPCS: 36415; 80053

== ENCOUNTER 2024-06-13 08:58 | Outpatient (CLI) | payer SELFPAY ==
[2024-06-13 09:11] VITALS: BMI 33.7
[2024-06-13 09:18] VITALS: BP 95/57; PULSE 85; RESP 16; TEMP 36.3
[2024-06-13 09:31] LABS: Mucous, Urine 0 SEEN /hpf (<or=2+); Red Blood Cells-Urine 0 SEEN /hpf (0-5)
[2024-06-13 09:37] LABS: Color, Urine Yellow (Yellow); Glucose, Dipstick Normal (Normal); Ketone-Dipstick Negative (Negative); Leukocyte Esterase-Dipstick 500 /ul (Negative); Nitrite-Dipstick Negative (Negative); Occult Blood-Urine 25 /ul (Negative); Protein-Dipstick Negative (Negative); Urine Bilirubin Dipstick Negative (Negative); Urine Clarity Cloudy (Clear); Urine Urobilinogen Normal (Normal)
[2024-06-13 10:27] LABS: Bacteria 2+ /hpf (None Seen); Squamous Epithelial Cells - UA 0-5 SEEN /hpf (5-10)
[2024-06-13 10:28] LABS: White Blood Cells 25-50 SEEN /hpf (0-5)
--- NOTE | 2024-06-13 15:14 | OB.TRI.HP_ITS ---
HPI - General General Date of Service: 06/13/24 HPI Narrative CORA CEBALLOS, is a 39 F who presents to L&D at 35 weeks 6 days after being seen in office today by Anya Church to rule out tachycardia. The patient also complains of urinary frequency and thinks has UTI. She denies loss of fluid, vaginal bleeding, or dec fm. She also denies fevers or chills Maternal Data Information LINDA Calculator Estimated Delivery Date Method Current WG Current Estimate 07/12/24 LMP (Certain) 35w 6d PFSH PFSH Medical History Lyme disease Superficial varicosities Positive GBS test History of thyroid disease Home Medications ?Medication ?Instructions ?Recorded ?Last Taken ?Type vitamin#30 30 mg iron-10 1 cap PO TID 04/09/20 06/12/24 22:00 History mg iron-folic acid 1 mg-omg3 1 cap capsule cetirizine 10 mg capsule (Zyrtec) 10 mg PO DAILY PRN allergies 12/28/23 06/12/24 22:00 History 10 mg cholecalciferol (vitamin D3) 125 125 mcg PO DAILY 12/28/23 06/12/24 08:26 History mcg (5,000 unit) capsule 125 mcg magnesium 200 mg tablet 200 mg PO BID 12/28/23 06/12/24 22:00 History 200 mg omega-3 fatty acids 1,000 mg 1,000 mg PO DAILY 12/28/23 06/12/24 22:00 History capsule 1,000 mg nitrofurantoin 100 mg PO BID #14 caps 06/13/24 Unknown Rx monohydrate/macrocrystals 100 mg capsule (Macrobid) Allergy/AdvReac Type Severity Reaction Status Date / Time latex Allergy Mild rash Verified 06/13/24 09:25 Family History Unknown Cancer Spina bifida Neice Clubbed foot nephew Down syndrome Husbands niece Surgical History History of delivery Social History adopted: No household members: spouse and children housing: house number of children: 4 current occupational status: unemployed current occupation: [employer] pets and animals: No history of recent travel: Yes ([place]) out of state: Yes out of country: No sexually active: Yes Smoking Status: Never smoker alcohol intake: never substance use type: does not use diet: lactose free well-balanced diet: daily or most days caffeine: Yes Type: coffee Number of servings: 1 eating out: rarely or never during the past year weight has: decreased > 10 lbs what type of physical activity do you participate in: none dany/temple: Adventist seatbelt use: always do you feel safe at home: Yes additional social history: Monae Ortega Patient works out of the home History 6 Elective abortions 0 Hx Para 4 Spontaneous abortions 1 Hx # Term Pregnancies 4 Ectopic pregnancies 0 Hx # Pregnancies Multiple births 0 # of living children 4 Past Pregnancies Del. Date Name GA/Weeks Outcome Route Bth Weight Infant Gen Labor Lgth Anesthesia Del Locat Provider FOB Unknown 2015 Zakia live - full term Fema le Dr. Divina Acosta Unknown 09/04/20 Cirilo 41 live - full term 8#5oz Male 32 hours none [place] Dr. Lito Azevedo 11/24/18 Denny 41 live - full term Male s radha [facility] IVY 07/15/22 Christina 41 live - full term 7# 11oz Male none [facility] Delivery Date: 11/24/18 Last Updated by: Heydi Potter prev C/S; DM Visit Details Expected Delivery Route/Plan TOLAC patient counseled regarding risks/benefits of trial of labor versus repeat . ACOG/uptodate education given to patient. [] % likelihood of success per calculator TOLAC consent form signed: [] Labor Preferences- CB/BF classes: no labor support person: Jolly labor intervention preferences: [] pain management options preferred: limited cut cord/dad catch: no : yes PP control planned: [] discussed possible routes of delivery and associated risks: [] special requests: [] Plans Covid status: [] Flu vaccine: declines Tdap vaccine: declines Rhogam: NA LARC form signed: yes movement and labor precautions reviewed. Problem list reviewed and updated with the most current plan of care details and appropriate orders placed. Relevant counseling for the gestational age provided. Continue routine care and follow up unless otherwise noted in visit notes/problem list details OB Flowsheet Initial Weight: Not Recorded Date -?-?-?-?-?-?-?-?-?-?-?-?- EGA Weight BP Urine Prot -?-?-?-?-?-?-?-?-?-?-?-?- Glucose FHR FuHt Pres Dilation -?-?-?-?-?-?-?-?-?-?-?-?- Effaced St Visit Note 12/30/23 -?-?-?-?-?-?-?-?-?-?-?-?- 12w 1d 172 lb 8 oz 103/65 -?-?-?-?-?-?-?-?-?-?-?-?- 168 -?-?-?-?-?-?-?-?-?-?-?-?- KW- CRL 63mm, wi thin 7 day range. will keep LMP LINDA. had A1C last month. will bring in results and will start doing fastings. declines NIPT 02/10/24 -?-?-?-?-?-?-?-?-?-?-?-?- 18w 1d 175 lb 88/59 Negative -?-?-?-?-?-?-?-?-?-?-?-?- Negative 150 -?-?-?-?-?-?-?-?-?-?-?-?- SM- needs new ob labs drawn. no vb cramping 02/28/24 -?-?-?-?-?-?-?-?-?-?-?-?- 20w 5d 177 lb 89/60 Negative -?-?-?-?-?-?-?-?-?-?-?-?- Negative 151 -?-?-?-?-?-?-?-?-?-?-?-?- MH-No VB. Feels well. Feeling movement. Anatomy US today. Hgba1c WNL. Random glucose testing WNL and she is no longer testing. 03/26/24 -?-?-?-?-?-?-?-?-?-?-?-?- 24w 4d 184 lb 97/62 Negative -?-?-?-?-?-?-?-?-?-?-?-?- Negative 145 25 -?-?-?-?-?-?-?-?-?-?-?-?- KW- no vb/ctx. g ood fm. discussed 28 week labs. 04/30/24 -?-?-?-?-?-?-?-?-?-?-?-?- 29w 4d 184 lb 8 oz 93/61 Nega tive -?-?-?-?-?-?-?-?-?-?-?-?- Negative 150 28 -?-?-?-?-?-?-?-?-?-?-?-?- JV- passed 3 hr today. pt was told by [employer] that her fasting was 91 but they reported 101. Fasting levels at home are less than 100. declines tdap. Plan 36 week growth scan. 05/08/24 -?-?-?-?-?-?-?-?-?-?-?-?- 30w 5d 184 lb 4 oz 98/64 Nega tive -?-?-?-?-?-?-?-?-?-?-?-?- Negative 151 30 -?-?-?-?-?-?-?-?-?-?-?-?- MH-No VB, LOF. G ood FM. Denies concerns. 05/22/24 -?-?-?-?-?-?-?-?-?-?-?-?- 32w 5d 185 lb 91/58 Trace -?-?-?-?-?-?-?-?-?-?-?-?- Negative 135 33 -?-?-?-?-?-?-?-?-?-?-?-?- SM- no vb lof go od fm no regular ctx 06/07/24 -?-?-?-?-?-?-?-?-?-?-?-?- 35w 0d 185 lb 6 oz 99/63 Nega tive -?-?-?-?-?-?-?-?-?-?-?-?- Negative 140 34 -?-?-?-?-?-?-?-?-?-?-?-?- JV- no lof, vagi nal bleeding, or dec fm. nst is reactive. patient is experiencing all over body itching. bile acids ordered with cmp. she will take zyrtec and pepcid in meantime. 06/13/24 -?-?-?-?-?-?-?-?-?-?-?-?- 35w 6d 185 lb 2 oz 108/65 Nega tive -?-?-?-?-?-?-?-?-?-?-?-?- Negative 202 0.5 -?-?-?-?-?-?-?-?-?-?-?-?- 20 -4 MH-backach e, vaginal pressure. No LOF, VB or reg CTX. just don't feel well. Prolonged listen to FHT and 180-200. Very active. ROS Constitutional Constitutional: Reports systems reviewed and no addt'l complaints, except as documented Gastrointestinal Gastrointestinal: Denies bloating, constipation, cramping, diarrhea, nausea or vomiting Genitourinary Genitourinary: Reports other Details: Denies vaginal odor, vaginal bleeding, or vaginal discharge ; Denies difficulty urinating or flank pain NST FHR Rate Baby A Baseline: 120-140 Variability:: Moderate Accelerations:: 15 x 15 Decelerations:: None NST Reactive:: Yes FHR Category:: Category I Uterine Activity:: 1 contraction in 20 min Assessment & Plan (1) UTI in , antepartum: PLAN: reassuring NST. no tachycardia note. ua has signs of uti. starting macrobid. 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 (2) Anemia during : COMMENT: OTC iron daily opposite PNV (3) Rubella non-immune status, antepartum: COMMENT: MMR (4) Lower extremity pain, left: COMMENT: venous duplex (5) Advanced maternal age (AMA), 40 years or greater: COMMENT: declines NIPT, weekly nsts 34 weeks on, growth US q 4 weeks, delivery by 39-40 (6) FH: Down syndrome: COMMENT: Husbands niece (7) Hx successful (vaginal after ), currently : COMMENT: 2 successful 's (8) History of : COMMENT: 2 C sections out of 4 deliveries (9) History of gestational diabetes mellitus (GDM) in prior , currently : COMMENT: HgbA1c 4.9. Random glucose testing fasting and 2 hr pp all nl and no longer testing at 20 wk. (10) Supervision of high-risk : QUALIFIERS: Trimester: third trimester Qualified Code(s): O09.93 - Supervision of high risk , unspecified, third trimester COMMENT: PRR , LINDA 07/12/24, girl [facility] Denny Koehler Jedidiah, Christina Jolly (11) : QUALIFIERS: Weeks of gestation: 35 weeks Qualified Code(s): Z3A.35 - 35 weeks gestation of COMMENT: declines genetic & carrier testing, nl anatomy. (12) GBS (group B Streptococcus carrier), +RV culture, currently : COMMENT: treat in labor (13) tachycardia: (14) screening for HIV declined: COMMENT: patient declined HIV and Syphilis testing at 2nd trimester. (15) Abnormal glucose level: COMMENT: 3 HR GTT NORMAL Charges/Coding Multi Select Codes Urinary/Genital Urinary/Genital CPT Codes: 89494-19 non-stress test Interp
== END 2024-06-13 10:50 | disposition home or self-care (01) ==
LOC: LABSPEC 08:58 → WPOUT 09:05 → WP 09:06
PROVIDERS: PCP Physician Assistant; Referring Provider Obstetrics & Gynecology; Visit Provider Obstetrics & Gynecology
DX: O36.8330 Maternal care for abnormalities of the fetal heart rate or rhythm, third trimester, not applicable or unspecified (principal); O23.43 Unspecified infection of urinary tract in pregnancy, third trimester; O09.523 Supervision of elderly multigravida, third trimester; Z3A.35 35 weeks gestation of pregnancy
CPT/HCPCS: 59025; 59050; 81001; 87653; 99221; G0378

== ENCOUNTER → 2024-06-19 | Outpatient (CLI) | payer SELFPAY ==
--- OUTSIDE RECORDS SUMMARY | 2024-06-19 07:45 | XMS RPT_ITS | CCD ---
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 [id number] Performed By: #### 2 02471 #### [address] [address] THYROID PEROXIDASE AB [CCL]o n 08-10-2022 TPO Antibody <1.0 Normal <5.6 [facility] Comment on above: Result Comment: Thyr oid Peroxidase Antibody test is used as an aid in diagnosis of autoimmune thyroid disease. Clinical correlation is required. [id number] [place] [address] Jabari Fontanez III, M.D. [id number] Performed By: #### 2 91105 #### [facility],[address] [place] [address] CBC + DIFFon 08-09-2022 Baso # 0.00 x10EE3/UL Normal 0.00 - 0.10 [facility] Comment on above: Performed By: #### 2 34665 #### [facility],[address] [place] [address] Basophils/100 WBC (Bld) 0.4 % Normal 0.0 - 2.0 [facility] Comment on above: Performed By: #### 2 99894 #### [facility],[address] [place] [address] CBC + DIFF Normal [facility] Comment on above: Result Comment: CBC- COMPLETE BLOOD COUNT Performed By: #### 2 89588 #### [facility],[address] [place] [address] EO # 0.60 x10EE3/UL High 0.00 - 0.50 [facility] Comment on above: Performed By: #### 2 11474 #### [facility],[address] [place] [address] Eosinophils/100 WBC (Bld) 8.5 % High 0.0 - 7.0 [facility] Comment on above: Performed By: #### 2 77449 #### [facility],[address] [place] [address] Erythrocyte distribution width (RBC) [Ratio] 14.6 % Normal 12.0 - 15.6 [facility] Comment on above: Performed By: #### 2 22158 #### [facility],[address] [place] [address] Hematocrit (Bld) [Volume fraction] 32.0 % Low 34.0 - 46.0 [facility] Comment on above: Performed By: #### 2 74586 #### [facility],[address] [place] [address] Hemoglobin (Bld) [Mass/Vol] 10.3 g/dL Low 12.0 - 16.0 [facility] Comment on above: Performed By: #### 2 76504 #### [facility],[address] [place] [address] Lymph # 1.90 x10EE3/UL Normal 0.80 - 2.80 [facility] Comment on above: Performed By: #### 2 70692 #### [facility],[address] [place] [address] Lymphocytes/100 WBC (Bld) 28.2 % Normal 20.0 - 45.0 [facility] Comment on above: Performed By: #### 2 98662 #### [facility],[address] [place] [address] MANUAL DIFF N/A Normal [facility] Comment on above: Performed By: #### 2 64344 #### [facility],[address] [place] [address] MCH (RBC) [Entitic mass] 27 pg Normal 27 - 33 [facility] Comment on above: Performed By: #### 2 67124 #### [facility],[address] [place] [address] MCHC 32 X10 3 Normal 32 - 36 [facility] Comment on above: Performed By: #### 2 67212 #### [facility],[address] [place] [address] MCV (RBC) [Entitic vol] 83 fL Normal 80 - 99 [facility] Comment on above: Performed By: #### 2 05349 #### [facility],[address] [place] [address] Hardin # 0.70 x10EE3/UL Normal 0.20 - 1.00 [facility] Comment on above: Performed By: #### 2 98699 #### [facility],[address] [place] [address] MONOS % 10.6 % High 0.0 - 10.0 [facility] Comment on above: Performed By: #### 2 16378 #### [facility],[address] [place], [place] [id number] Morphology Gerardo (Bld) [Interp] N/A Normal [facility] Comment on above: Result Comment: {CD] Performed By: #### 2 18528 #### [facility],[address] [place] [address] Neut # 3.50 x10EE3/UL Normal 1.50 - 7.10 [facility] Comment on above: Performed By: #### 2 18634 #### [facility],[address] [place] [address] Neutrophils/100 WBC (Bld) 52.3 % Normal 46.0 - 76.0 [facility] Comment on above: Performed By: #### 2 25954 #### [facility],[address] [place] [address] PLATELET 291 x10EE3/UL Normal 150 - 450 [facility] Comment on above: Performed By: #### 2 62046 #### [facility],[address] [place] [address] Platelet mean volume (Bld) [Entitic vol] 9.2 fL Normal 6.6 - 10.5 [facility] Comment on above: Result Comment: AUTO MATED DIFFERENTIAL Performed By: #### 2 22213 #### [facility],[address] [place] [address] RBC 3.88 x 10EE6/UL Low 4.10 - 5.30 [facility] Comment on above: Performed By: #### 2 11743 #### [facility],[address] [place] [address]71 WBC 6.7 x 10EE3/UL Normal 4.5 - 10.8 [facility] Comment on above: Performed By: #### 2 20528 #### [facility],[address] [place] [address]121 CMP with eGFRon 08-09-2022 AGE 37 years Normal [facility] Comment on above: Performed By: #### 2 33011 #### [facility],[address] [place] [address] 35057 Albumin [Mass/Vol] 3.4 g/dL Normal 3.4 - 5.0 [facility] Comment on above: Performed By: #### 2 74265 #### [facility],[address] [place] [address] 33694 Albumin/Globulin [Mass ratio] 1.0 {ratio} Normal 0.9 - 1.6 [facility] Comment on above: Performed By: #### 2 17192 #### [facility],[address] [place] [address] 97880 ALK PHOS 59 U/L Normal 46 - 116 [facility] Comment on above: Performed By: #### 2 11747 #### [facility],[address] [place] [address]20 ALT [Catalytic activity/Vol] 25 U/L Normal 14 - 59 [facility] Comment on above: Performed By: #### 2 07493 #### [facility],[address] [place] [address]3855 Anion gap [Moles/Vol] 14 mmol/L Normal 10 - 20 [facility] Comment on above: Performed By: #### 2 02762 #### [facility],[address] [place] [address] 00510 AST [Catalytic activity/Vol] 21 U/L Normal 13 - 39 [facility] Comment on above: Performed By: #### 2 31189 #### [facility],[address] [place] [address]871 B/C RATIO 16 ratio Normal 0 - 30 [facility] Comment on above: Performed By: #### 2 64165 #### [facility],[address] [place] [address]771 Bilirubin [Mass/Vol] 0.2 mg/dL Normal 0.2 - 1.0 [facility] Comment on above: Performed By: #### 2 22364 #### [facility],[address] [place] [address] 33595 Calcium [Mass/Vol] 8.8 mg/dL Normal 8.5 - 10.1 [facility] Comment on above: Performed By: #### 2 27051 #### [facility],[address] [place] [address] 94798 Chloride [Moles/Vol] 106 mmol/L Normal 98 - 107 [facility] Comment on above: Performed By: #### 2 68888 #### [facility],[address] [place] [address] 61472 CMP with eGFR Normal [facility] Comment on above: Result Comment: COMP REHENSIVE METABOLIC PANEL Performed By: #### 2 05932 #### [facility],[address] [place] [address] 12535 CO2 [Moles/Vol] 25.5 mmol/L Normal 21.0 - 32.0 [facility] Comment on above: Performed By: #### 2 31265 #### [facility],[address] [place] [address]957 Creatinine [Mass/Vol] 0.83 mg/dL Normal 0.55 - 1.02 [facility] Comment on above: Performed By: #### 2 27773 #### [facility],[address] [place] [address] GFR/1.73 sq M.predicted among non-blacks MDRD (S/P/Bld) [Vol rate/Area] mL/min/{1.73_m2} Normal 60 - 999 [facility] Comment on above: Performed By: #### 2 30964 #### [facility],[address] [place] [address] Result Comment: ACCO RDING TO THE NATIONAL KIDNEY DISEASE EDUCATION PROGRAM(NKDE), A NORMAL eGFR IS A VALUE GREATER THAN OR EQUAL TO 60 ML/MIN/1.73 SQ METERS. CHRONIC KIDNEY DISEASE: <60mL/MIN/1.73 SQ METERS KIDNEY FAILURE: <15mL/MIN/1.73 SQ METERS THIS TEST SHOULD ONLY BE USED FOR PATIENTS 18 YEARS OF AGE AND OLDER. Globulin (S) [Mass/Vol] 3.4 g/dL Normal 1.5 - 3.8 [facility] Comment on above: Performed By: #### 2 94801 #### [facility],[address] [place] [address] 98421 Glucose [Mass/Vol] 103 mg/dL Normal 74 - 106 [facility] Comment on above: Performed By: #### 2 45811 #### [facility],[address] [place] [address] 18873 Potassium [Moles/Vol] 3.9 mmol/L Normal 3.5 - 5.1 [facility] Comment on above: Performed By: #### 2 48028 #### [facility],[address] [place] [address]5821 Protein [Mass/Vol] 6.8 g/dL Normal 6.4 - 8.2 [facility] Comment on above: Performed By: #### 2 71298 #### [facility],[address] [place] [address] 22304 Sodium [Moles/Vol] 142 mmol/L Normal 136 - 145 [facility] Comment on above: Performed By: #### 2 89761 #### [facility],[address] [place] [address] 79897 Urea nitrogen [Mass/Vol] 13 mg/dL Normal 7 - 18 [facility] Comment on above: Performed By: #### 2 00423 #### [facility],[address] [place] [address] 84664 IRONon 08-09-2022 Iron [Mass/Vol] 28 ug/dL Low 50 - 170 [facility] Comment on above: Performed By: #### 2 22461 #### [facility],[address] [place] [address] 37699 LIPID PROFILEon 08-09-2022 Cholesterol [Mass/Vol] 182 mg/dL Normal 0 - 240 [facility] Comment on above: Performed By: #### 2 54320 #### [facility],[address] [place] [address] 60825 Cholesterol in HDL [Mass/Vol] 61 mg/dL High 40 - 60 [facility] Comment on above: Performed By: #### 2 49600 #### [facility],[address] [place] [address] 46065 Cholesterol in LDL [Mass/Vol] 99 mg/dL Normal 0 - 129 [facility] Comment on above: Performed By: #### 2 48858 #### [facility],[address] [place] [address] 52545 Cholesterol.total/C holesterol in HDL [Mass ratio] 3.0 {ratio} Normal 0.0 - 5.0 [facility] Comment on above: Performed By: #### 2 86545 #### [facility],[address] [place] [address] 09928 Lipid 1996 panel Normal [facility] Comment on above: Result Comment: LIPI D PROFILE Performed By: #### 2 42993 #### [facility],[address] [place] [address]1957 Triglyceride [Mass/Vol] 108 mg/dL Normal 0 - 150 [facility] Comment on above: Performed By: #### 2 90933 #### [facility],[address] [place] [address] 98536 T4 (THYROXINE) TOTALon 08-09 T4 (THYROXINE) TOTAL Normal [facility] Comment on above: Result Comment: THYR OXINE(T4) Performed By: #### 2 68546 #### [facility],[address] [place] [address] 60101 T4 [Mass/Vol] 5.5 ug/dL Normal 4.7 - 13.3 [facility] Comment on above: Performed By: #### 2 13719 #### [facility],[address] [place] [address] 80679 TSHon 08-09-2022 TSH Qn 1.63 m[IU]/L Normal 0.35 - 3.74 [facility] Comment on above: Performed By: #### 2 46287 #### [facility],[address] [place] [address] 11855 Encounters Encounter Date Encounter Type Care Provider Facility Start: 08-09-2022 End: 08-09-2022 ambulatory MANJEET GO [facility] Summary Purpose Family History No Family History Records Found Advance Directives No Advanced Directives Records Found Additional Source Comments INFORMATION SOURCE (unrecogn ized section and content) DATE CREATED AUTHOR 08/11/2022 [facility] FOR RECORDS PERTAINING TO PATIENTS WHO ARE OR HAVE BEEN ENROLLED IN A CHEMICAL DEPENDENCY/SUBSTANCEABUSE PROGRAM, SOME INFORMATION MAY BE OMITTED. This clinical summary was aggregated from multiple sources. Caution should be exercised in using it in the provision of clinical care. This summary normalizes information from multiple sources, and as a consequence, information in this document may materially change the coding, format and clinical context of patient data. In addition, data may be omitted in some cases. CLINICAL DECISIONS SHOULD BE BASED ON THE PRIMARY CLINICAL RECORDS. [employer] provides no warranty or guarantee of the accuracy or completeness of information in this document.
--- NOTE | 2024-06-19 07:46 | US_ITS ---
STUDY: SECOND AND THIRD TRIMESTER OBSTETRICAL ULTRASOUND - LIMITED REASON FOR EXAM: Female, 39 years old advanced maternal age LMP: October 06, 2023. PRIOR ULTRASOUND: Comparison is made with prior study February 28, 2024. TECHNIQUE: Transabdominal TECHNICAL QUALITY: Adequate. FINDINGS: There is a single intrauterine fetus. The fetus is in a cephalic presentation. There is demonstrated cardiac activity with a heart rate of 153 bpm. There is a normal amniotic fluid volume. The largest amniotic fluid pocket measures 4.2 cm. The amniotic fluid index (ROBERT) is 8.0 cm. The placenta is fundal in location. There are Grade 1 placental changes. BIOMETRY: BPD: 8.6 cm: 34 weeks, 4 days: 9% HC: 31.4 cm: 35 weeks, 1 days: 4% AC: 32.7 cm: 36 weeks, 5 days: 61% FL: 7 cm: 35 weeks, 5 days: 22% Age by LMP: 36 weeks, 5 days. LINDA by LMP: July 12, 2024. age by current US: 35 weeks, 3 days. LINDA by current US: July 21, 2024. Estimated weight: 2861 grams, +/- 429 grams, 40 percentile. US/OB Limited With Biometrics IMPRESSION: Single live uterine gestation with mean gestational age of 35 weeks and 3 days. Electronically Signed: Hank Quinonez MD at 15:03 EST ,
== END | disposition home or self-care (01) ==
LOC: US 07:43
PROVIDERS: PCP Physician Assistant; Referring Provider Obstetrics & Gynecology; Visit Provider Obstetrics & Gynecology
DX: E66.9 Obesity, unspecified (principal)
CPT/HCPCS: 76816

== ENCOUNTER 2024-07-07 17:25 | Outpatient (CLI) | payer SELFPAY ==
[2024-07-07 17:48] VITALS: BP 122/74; PULSE 92; O2SAT 96
[2024-07-07 17:55] VITALS: BMI 35.1
[2024-07-07 19:21] VITALS: RESP 18; TEMP 37
[2024-07-07 19:22] VITALS: BP 107/58; PULSE 96; O2SAT 91
--- NOTE | 2024-07-11 08:45 | OB.TRI.PN ---
Progress Notes Date of Service: 07/07/24 Progress Note: Patient presents for triage evaluation secondary to contracitons FHT: 150 Moderate variability reactive no decelerations category I tracing [place]: q 3-5 Contractions Assessment and plan: false llabor 39 weeks no cervical change, Reactive NST, reassuring maternal and status patient discharged to home to follow-up as scheduled. See problem list details for additional plan information. Charges/Coding Procedures Urinary/Genital 52xxx-59xxx: 91138-47 non-stress test Interp Assessment & Plan (1) GBS (group B Streptococcus carrier), +RV culture, currently : COMMENT: treat in labor (2) False labor: (3) : QUALIFIERS: Weeks of gestation: 39 weeks Qualified Code(s): Z3A.39 - 39 weeks gestation of COMMENT: declines genetic & carrier testing, nl anatomy. (4) Hx successful (vaginal after ), currently : COMMENT: 2 successful 's (5) History of : COMMENT: 2 C sections out of 4 deliveries
== END 2024-07-07 20:50 | disposition home or self-care (01) ==
LOC: WPOUT 17:30 → WP 17:31
PROVIDERS: PCP Physician Assistant; Referring Provider Obstetrics & Gynecology; Visit Provider Obstetrics & Gynecology
DX: O47.1 False labor at or after 37 completed weeks of gestation (principal); Z3A.39 39 weeks gestation of pregnancy
CPT/HCPCS: 59025; 59050; 99221; G0378

== ENCOUNTER 2024-07-15 03:50 | Inpatient (IN) | payer SELFPAY ==
[2024-07-15] VITALS (49 sets, daily range): BP systolic 90–129; BP diastolic 51–76; PULSE 75–108; RESP 16; TEMP 36.7–37.4; O2SAT 92–100; BMI 35.6
[2024-07-15] MEDS: Lactated Ringers 1,000 ML 50 ML IV (04:00)
[2024-07-15 04:12] LABS: Absolute Lymphocyte Count 1.48 X10^3/uL (0.83-4.51); Absolute Neutrophil Count 8.2 X10^3/uL (2.0-7.7); Basophil# 0.03 X10^3/uL; Basophil% 0.3 % (0-1); Eosinophil# 0.19 X10^3/uL; Eosinophils% 1.8 % (0-5); Hematocrit 33.1 % (37-47); Hemoglobin 10.6 g/dL (12.0-15.0); Lymphocyte # 1.48 X10^3/ul (0.83-4.51); Lymphocyte % 13.8 % (19-41); Mean Corpuscular Hgb 28.5 pg (27.0-32.0); Mean Platelet Vol. 10.5 fl (6.2-12.0); Monocyte# 0.77 X10^3/uL; Monocyte% 7.2 % (0-10); NRBC Flagged by Analyzer 0 % (0-5); Neutrophil % 76.3 % (47-70); Platelet Count 209 K/mm3 (150-450); RBC Distribution Width CV 15.2 % (11.6-14.6); RBC Distribution Width SD 48.9 fl (35.1-43.9); Red Blood Count 3.72 M/mm3 (4.2-5.4); White Blood Count 10.7 K/mm3 (4.4-11.0)
[2024-07-15] MEDS: Penicillin G Pot 5,000,000 UNITS in 0.9% Normal Saline (100mL MB+) 100 ML 150 UNITS IV (04:12)
[2024-07-15 04:47] LABS: Syphilis Antibodies Non-reactive
[2024-07-15] MEDS: Penicillin G 3,000,000 Units 50 ML 100 UNITS IV ×2 (08:50→11:53)
[2024-07-15] MEDS: Oxytocin 15 Units/NS 250ml 15 UNITS/250 ML IV.SOLN 2 UNITS IV (11:44)
[2024-07-15] MEDS: Oxytocin 15 Units/NS 250ml 15 UNITS/250 ML IV.SOLN 83 UNITS IV (12:54)
[2024-07-15] MEDS: Ibuprofen 600 MG Tablet PO ×2 (14:08→20:56)
[2024-07-15 15:09] LABS: Hematocrit 30.4 % (37-47); Hemoglobin 10.1 g/dL (12.0-15.0); Mean Corp Hgb Conc 33.2 g/dL (32-36); Mean Corpuscular Hgb 28.8 pg (27.0-32.0); Mean Corpuscular Volume 86.6 fL (81-99); Mean Platelet Vol. 9.9 fl (6.2-12.0); Platelet Count 220 K/mm3 (150-450); RBC Distribution Width CV 15.2 % (11.6-14.6); RBC Distribution Width SD 47.8 fl (35.1-43.9); Red Blood Count 3.51 M/mm3 (4.2-5.4); White Blood Count 17.2 K/mm3 (4.4-11.0)
[2024-07-16] VITALS (9 sets, daily range): BP systolic 86–101; BP diastolic 53–61; PULSE 79–90; RESP 16–18; TEMP 36.5–36.9; O2SAT 96–97
[2024-07-16] MEDS: Ibuprofen 600 MG Tablet PO (07:14)
[2024-07-16] MEDS: Senna/Docusate Sodium 1 Tablet PO (09:38)
== END 2024-07-16 14:50 | disposition home or self-care (01) | DRG 807 ==
LOC: WPOUT 04:07 → WP 04:07
PROVIDERS: Registered Nurse; Admitting Provider Obstetrics & Gynecology; PCP Physician Assistant; Referring Provider Obstetrics & Gynecology; Visit Provider Obstetrics & Gynecology
DX: O66.0 Obstructed labor due to shoulder dystocia (principal); Z37.0 Single live birth; O34.219 Maternal care for unspecified type scar from previous cesarean delivery; O69.81X0 Labor and delivery complicated by cord around neck, without compression, not applicable or unspecified; O99.824 Streptococcus B carrier state complicating childbirth; O99.02 Anemia complicating childbirth; Z3A.40 40 weeks gestation of pregnancy; Z87.59 Personal history of other complications of pregnancy, childbirth and the puerperium
CPT/HCPCS: 59025; 59050; 85025; 85027; 86780; 86850; 86900; 86901; 99221; J7120; G0378